=== PATIENT | female | born 2005 | race Caucasian/White ===

== ENCOUNTER 2024-01-15 00:07 | Inpatient (IN) ==
[2024-01-15 01:20] LABS: Appearance Urine Cloudy (Clear); Bacteria Urine Automated 1+ (Negative); Bilirubin Urine Negative (Negative); Blood Urine Negative (Negative); Color Urine Yellow; Epithelial Cell Urine Auto >30 /lpf (0-5); Glucose Urine UA Negative (Negative); Ketones Urine Trace (Negative); Leukocyte Esterase Urine 3+ (Negative); Nitrite Urine Negative (Negative); Protein Urine 1+ (Negative); RBC Urine Automated 0-4 /hpf (0-4); Specific Gravity Urine 1.025 (1.000-1.030); Urobilinogen Urine Negative (Negative); WBC Urine Automated >30 /hpf (0-5)
[2024-01-15 01:21] LABS: Basophils # (auto) 0.03 K/uL (0.00-0.20); Basophils % (auto) 0.5 %; Eosinophils # (auto) 0.14 K/uL (0.00-0.50); Eosinophils % (auto) 2.3 %; Immature Granulocytes # (auto) 0.01 K/uL (0.01-0.20); Immature Granulocytes % (auto) 0.2 %; Lymphocytes # (auto) 2.66 K/uL (1.20-3.40); Lymphocytes % (auto) 44.4 %; Mean Corpuscular Hemoglobin 32.6 pg (25.0-34.0); Mean Corpuscular Volume 95.9 fL (80.0-100.0); Mean Platelet Volume 9.1 fL (9.4-12.4); Monocytes # (auto) 0.39 K/uL (0.11-0.59); Monocytes % (auto) 6.5 %; Neutrophils # (auto) 2.76 K/uL (1.40-6.50); Neutrophils % (auto) 46.1 %; Platelet Count 315 K/uL (130-400); RDW Coefficient of Variation 12.2 % (11.5-14.5); RDW Standard Deviation 42.6 fL (36.4-46.3); White Blood Count 5.99 K/ul (4.8-10.8)
[2024-01-15 01:44] LABS: BUN Creatinine Ratio 16.5 (10-20); Calcium 9.8 mg/dl (8.6-10.3)
[2024-01-15 02:02] LABS: Albumin Globulin Ratio 1.7 (0.9-2); Bilirubin,Total 0.7 mg/dl (0.2-1.0)
--- NOTE | 2024-01-15 02:26 | Emergency Department Note ---
History of Present Illness General Chief complaint: GI Assessment Stated complaint: ALCOHOL INDUCED GASTRITIS Time Seen by Provider: 01/15/24 01:45 History of Present Illness Maximum Pain Intensity: 7 This is a 18-year-old female to male transgender person presenting to the emergency department for evaluation of abdominal pain, nausea, and vomiting. She has a history of alcohol related gastritis and was drinking alcohol this evening. The patient has not been able to keep any food or fluids down after the drinking episode. He does have epigastric pain that does not radiate. No fevers or chills. No chest pain, chest tightness, shortness of breath. They rates her discomfort a 7/10. Home Medications Medication Instructions Recorded Confirmed Type aripiprazole 2 mg tablet 2 mg PO HS 01/15/24 01/15/24 History cholecalciferol (vitamin D3) 25 25 mcg PO DAILY 01/15/24 01/15/24 History mcg (1,000 unit) capsule (Vitamin D3) emtricitabine 200 mg-tenofovir 1 tab PO DAILY 01/15/24 01/15/24 History disoproxil fumarate 300 mg tablet gabapentin 300 mg capsule See Rx Instructions .Route .COMPLEX 01/15/24 01/15/24 History norethindrone 1 mg-ethinyl 1 tab PO DAILY 01/15/24 01/15/24 History estradiol 20 mcg (21)-iron 75 mg (7) tablet paroxetine HCl 10 mg tablet 10 mg PO QAM 01/15/24 01/15/24 History paroxetine HCl 40 mg tablet 40 mg PO QAM 01/15/24 01/15/24 History prazosin 1 mg capsule 1 mg PO HS 01/15/24 01/15/24 History testosterone cypionate 200 mg/mL 0 mg IM DIRECTED 01/15/24 01/15/24 History intramuscular oil Allergies Allergy/AdvReac Type Severity Reaction Status Date / Time No Known Allergies Allergy Verified 01/15/24 02:55 Past Med/Surg History Medical History Alcohol abuse Micmao-os-iubl transgender person Surgical History No significant past surgical history Social History Smoking Status: Current every day smoker Tobacco Type: E-cigarettes / Vaping Preferred Language: Italian Feels Safe at Home: Yes Gender Identity: Transgender Male Review of Systems A total of 10 systems reviewed and were otherwise negative Physical Exam Vital Signs Vital Signs - 24 hr 01/15/24 00:19 01/15/24 01:49 01/15/24 03:52 Temperature 36.7 C Temperature Source Temporal Artery Scan Pulse Rate 74 Pulse Rate [Finger] 63 82 Respiratory Rate 20 20 18 Respiratory Effort / Characteristics Non-Labored Spontaneous Respiratory Depth Normal Respiratory Pattern Regular Blood Pressure 133/83 Blood Pressure [Right Arm] 134/80 116/82 Blood Pressure Mean 99 Blood Pressure Mean [Right Arm] 98 93 Pulse Oximetry 97 98 100 Oxygen Delivery Method Room Air Room Air Room Air Sepsis Recent Fever Within 48 Hours No Sepsis New/Unexplained Change in Mental Status No Sepsis Action Taken by Nursing No Action Required 01/15/24 04:58 Temperature Temperature Source Pulse Rate Pulse Rate [Finger] 86 Respiratory Rate 16 Respiratory Effort / Characteristics Respiratory Depth Respiratory Pattern Blood Pressure Blood Pressure [Right Arm] Blood Pressure Mean Blood Pressure Mean [Right Arm] Pulse Oximetry 98 Oxygen Delivery Method Room Air Sepsis Recent Fever Within 48 Hours Sepsis New/Unexplained Change in Mental Status Sepsis Action Taken by Nursing VITALS: Vitals are noted on the nurse's note and reviewed by myself. Vital signs stable. GENERAL: Well-developed, well-nourished, female to male transgender person, who is in no acute distress and resting comfortably. Patient is cooperative with the examination. HEAD: Normocephalic atraumatic. MOUTH: Mucous membranes moist. Tonsils are not enlarged. Pharynx without erythema, blood, or exudate. Uvula midline. Airway patent. NECK: Supple without nuchal rigidity. No lymphadenopathy. No thyromegaly. Cervical spine is nontender. HEART: Regular rate and rhythm without murmurs gallops or rubs. LUNGS: Clear to auscultation bilaterally without wheezes, rales or rhonchi. No retractions or accessory muscle use. ABDOMEN: Positive normal bowel sounds x 4. Soft, with mild epigastric tenderness. No rebound or guarding. MUSCULOSKELETAL: No muscle atrophy, erythema, or edema noted. Full range of motion in all extremities. Course Administered Medications Discontinued Medications Sodium Chloride (Nss) 1,000 mls @ 999 mls/hr IV .Q1H1M ALESSIO Stop: 01/15/24 04:06 Last Infusion: 01/15/24 04:58 Dose: Infused Documented By: Admin: 01/15/24 02:45 Dose: 999 mls/hr Documented By: Infusion: 01/15/24 02:45 Dose: Infused Documented By: Admin: 01/15/24 02:44 Dose: 999 mls/hr Documented By: LENAK Pantoprazole Sodium 40 mg/ (Syringe) 10 mls @ 5 mls/min IV NOW ONE Stop: 01/15/24 02:07 Last Admin: 01/15/24 02:44 Dose: 5 mls/min Documented By: LENKA Ioversol (Optiray 320 100ml) 100 ml IV ONCE ONE Stop: 01/15/24 02:30 Last Admin: 01/15/24 02:29 Dose: 89 ml Documented By: CHRIS Medical Decision Making Differential Diagnosis Differential diagnosis: Etiologies such as biliary colic, cholecystitis, hepatitis, pancreatitis, cardiac disease, pancreatitis, gastritis, peptic ulcer disease, appendicitis, cystitis, diverticulitis, mesenteric ischemia, inflammatory bowel disease, ileus, bowel obstruction, testicular/adnexal torsion, aortic pathology, shingles, as well as others were considered Laboratory Data 01/15/24 01:04 01/15/24 01:04 Lab Results 01/15/24 01/15/24 Range/Units 01:00 01:04 WBC 5.99 (4.8-10.8) K/ul RBC 4.91 (4.70-6.10) M/uL Hgb 16.0 (14.0-18.0) g/dl Hct 47.1 (42.0-52.0) % MCV 95.9 (80.0-100.0) fL MCH 32.6 (25.0-34.0) pg MCHC 34.0 (32.0-36.0) g/dL RDW Std Deviation 42.6 (36.4-46.3) fL RDW Coeff of Mauri 12.2 (11.5-14.5) % Plt Count 315 (130-400) K/uL MPV 9.1 L (9.4-12.4) fL Immature Gran % (Auto) 0.2 % Neut % (Auto) 46.1 % Lymph % (Auto) 44.4 % [place] % (Auto) 6.5 % Eos % (Auto) 2.3 % Baso % (Auto) 0.5 % Neut # (Auto) 2.76 (1.40-6.50) K/uL Lymph # (Auto) 2.66 (1.20-3.40) K/uL [place] # (Auto) 0.39 (0.11-0.59) K/uL Eos # (Auto) 0.14 (0.00-0.50) K/uL Baso # (Auto) 0.03 (0.00-0.20) K/uL Immature Gran # (Auto) 0.01 (0.01-0.20) K/uL Sodium 140 (136-145) mmol/L Potassium 4.0 (3.5-5.1) mmol/L Chloride 105 (98-107) mmol/L Carbon Dioxide 27 (21-32) mmol/L Anion Gap 8 (3-11) BUN 13 (6-23) mg/dl Creatinine 0.79 (0.6-1.4) mg/dl Est Cr Clr Drug Dosing 112.7 ml/min Est GFR ( Amer) 149.8 ml/min Est GFR (Non-Af Amer) 129.3 ml/min BUN/Creatinine Ratio 16.5 (10-20) Glucose 89 (70-99(Fasting)) mg/dl Calcium 9.8 (8.6-10.3) mg/dl Total Bilirubin 0.7 (0.2-1.0) mg/dl AST 20 (13-39) U/L ALT 12 (7-52) U/L Alkaline Phosphatase 65 (34-104) U/L Total Protein 8.0 (6.0-8.3) gm/dl Albumin 5.0 (3.4-5.0) gm/dl Globulin 3.0 (2.5-4.0) gm/dl Albumin/Globulin Ratio 1.7 (0.9-2) Lipase 712 H (11-82) U/L Urine Color Yellow Urine Appearance Cloudy A (Clear) Urine pH 6.0 (4.5-7.5) Ur Specific [place] 1.025 (1.000-1.030) Urine Protein 1+ H (Negative) Urine Glucose (UA) Negative (Negative) Urine Ketones Trace H (Negative) Urine Blood Negative (Negative) Urine Nitrite Negative (Negative) Urine Bilirubin Negative (Negative) Urine Urobilinogen Negative (Negative) Ur Leukocyte Esterase 3+ H (Negative) Urine WBC (Auto) >30 H (0-5) /hpf Urine RBC (Auto) 0-4 (0-4) /hpf U Hyaline Cast (Auto) 5-10 H (0-5) /lpf U Epithel Cells (Auto) >30 H (0-5) /lpf Urine Bacteria (Auto) 1+ H (Negative) Ethyl Alcohol mg/dL 33.5 H (<10.0) mg/dl Imaging Data Radiologist's Impression: Abdomen/Pelvis CT 01/15/24 02:18 Exam(s): CT ABDOMEN + PELVIS With Contrast IV Amt: 89 ml optiray 320 EXAM: CT Abdomen and Pelvis With Intravenous Contrast CLINICAL HISTORY: Reason for exam: abd pain, pancreatitis on labs. TECHNIQUE: Axial computed tomography images of the abdomen and pelvis with intravenous contrast. CTDI is 10.86 mGy and DLP is 514.47 mGy-cm. Automated exposure control was utilized for the study. A dose lowering technique was utilized adhering to the principles of ALARA. CONTRAST: Patient received 89 ml optiray 320 of IV contrast COMPARISON: No relevant prior studies available. FINDINGS: Lung bases: Unremarkable. No mass. No consolidation. ABDOMEN: Liver: Unremarkable. No mass. Gallbladder and bile ducts: Unremarkable. No calcified stones. No ductal dilation. Pancreas: No CT signs of pancreatitis is clinically queried. Consider multiphasic imaging or MRI if there is further concern. No ductal dilation. Spleen: Unremarkable. No splenomegaly. Adrenals: Unremarkable. No mass. Kidneys and ureters: Unremarkable. No solid mass. No hydronephrosis. Stomach and bowel: No evidence of bowel obstruction. No mucosal thickening. PELVIS: Appendix: Normal appendix. Bladder: Unremarkable. No mass. Reproductive: Unremarkable as visualized. ABDOMEN and PELVIS: Intraperitoneal space: Unremarkable. No free air. No significant fluid collection. Bones/joints: No acute fracture. No dislocation. Soft tissues: Umbilical hernia containing fat. Vasculature: Patent splenic vein. No abdominal aortic aneurysm. Lymph nodes: Unremarkable. No enlarged lymph nodes. IMPRESSION: 1. No CT signs of pancreatitis is clinically queried. Consider multiphasic imaging or MRI if there is further concern. 2. No evidence of peripancreatic fluid collection or acute necrotic collection. 3. Patent splenic vein. 4. No other acute findings. Electronically signed by: Saad Mukherjee MD 01/15/24 05:22 AM MDM Narrative Physical exam and history were performed. Nursing notes, EMR, and Medication List were personally reviewed. No social concerns were identified as barriers to patients care. Patient appears to have nausea, vomiting, and epigastric abdominal pain. IV access was established and labs were obtained. Patient was hydrated and medicated as above. Patient's blood work is as above and was reviewed. Patient does not have a significantly elevated white blood cell count, gross anemia, bandemia, or significant electrolyte imbalance. Lipase is over 700 which likely suggest pancreatitis. Alcohol is 35. Overall the patient does not appear well for discharge. Patient is not able to tolerate p.o. food or fluids. They do have pancreatitis on labs. CT scan of the abdomen and pelvis was ordered. Case was discussed with the on-call hospitalist team who agreed to evaluate the patient here in the ER. Please see their dictation for further patient course, plan, and disposition. The chart was completed utilizing [employer] Speech Voice Recognition Software. Grammatical errors, random word insertions, pronoun errors, and incomplete sentences are an occasional consequence of this system due to software limitations, ambient noise, and hardware issues. Any formal questions or concerns about the content, text, or information contained within the body of this dictation should be directly addressed to the provider for clarification. . Impression & Plan Acute pancreatitis, Alcohol use Discharge Plan Visit Data Chief Complaint: GI Assessment Stated Complaint: ALCOHOL INDUCED GASTRITIS ED Provider: Sandoval [facility] ED Midlevel Provider: Randal Lunsford Discharge Problem: Acute pancreatitis, Alcohol use Forms Stand Alone Forms: My [facility] [place] Prescriptions Prescriptions: No Action paroxetine HCl 10 mg tablet 10 mg PO QAM Rx Instructions: TOTAL DOSE 50 MG--TAKES WITH 40 MG TAB. prazosin 1 mg capsule 1 mg PO HS norethindrone-e.estradiol-iron 1 mg-20 mcg (21)/75 mg (7) tablet 1 tab PO DAILY gabapentin 300 mg capsule See Rx Instructions .ROUTE .COMPLEX Rx Instructions: TAKES 300 MG QAM AND AFTERNOON, THEN 600 MG QHS testosterone cypionate 200 mg/mL oil 0 mg IM DIRECTED Rx Instructions: LAST FILLED 12/18/23 FOR 30 DAYS. paroxetine HCl 40 mg tablet 40 mg PO QAM Rx Instructions: TOTAL DOSE 50 MG--TAKES WITH 10 MG TAB. cholecalciferol (vitamin D3) [Vitamin D3] 25 mcg (1,000 unit) Capsule 25 mcg PO DAILY emtricitabine-tenofovir (TDF) 200-300 mg tablet 1 tab PO DAILY Rx Instructions: LAST FILLED 12/18/23 FOR 30 DAYS aripiprazole 2 mg tablet 2 mg PO HS Referrals Referrals: PCP,NO [Physician] -
[2024-01-15] MEDS: OPTIRAY 320 100ml IV ONE (02:29)
[2024-01-15] MEDS: PANTOprazole 40 MG in SYRINGE 0 ML IV ONE (02:44)
[2024-01-15] MEDS: SODIUM CHLORIDE 0.9% 1,000 ML IV SCH (02:44)
--- NOTE | 2024-01-15 05:23 | CT Scan Report ---
Exam(s): CT ABDOMEN + PELVIS With Contrast IV Amt: 89 ml optiray 320 EXAM: CT Abdomen and Pelvis With Intravenous Contrast CLINICAL HISTORY: Reason for exam: abd pain, pancreatitis on labs. TECHNIQUE: Axial computed tomography images of the abdomen and pelvis with intravenous contrast. CTDI is 10.86 mGy and DLP is 514.47 mGy-cm. Automated exposure control was utilized for the study. A dose lowering technique was utilized adhering to the principles of ALARA. CONTRAST: Patient received 89 ml optiray 320 of IV contrast COMPARISON: No relevant prior studies available. FINDINGS: Lung bases: Unremarkable. No mass. No consolidation. ABDOMEN: Liver: Unremarkable. No mass. Gallbladder and bile ducts: Unremarkable. No calcified stones. No ductal dilation. Pancreas: No CT signs of pancreatitis is clinically queried. Consider multiphasic imaging or MRI if there is further concern. No ductal dilation. Spleen: Unremarkable. No splenomegaly. Adrenals: Unremarkable. No mass. Kidneys and ureters: Unremarkable. No solid mass. No hydronephrosis. Stomach and bowel: No evidence of bowel obstruction. No mucosal thickening. PELVIS: Appendix: Normal appendix. Bladder: Unremarkable. No mass. Reproductive: Unremarkable as visualized. ABDOMEN and PELVIS: Intraperitoneal space: Unremarkable. No free air. No significant fluid collection. Bones/joints: No acute fracture. No dislocation. Soft tissues: Umbilical hernia containing fat. Vasculature: Patent splenic vein. No abdominal aortic aneurysm. Lymph nodes: Unremarkable. No enlarged lymph nodes. IMPRESSION: 1. No CT signs of pancreatitis is clinically queried. Consider multiphasic imaging or MRI if there is further concern. 2. No evidence of peripancreatic fluid collection or acute necrotic collection. 3. Patent splenic vein. 4. No other acute findings. Electronically signed by: Saad Mukherjee MD 01/15/24 05:22 AM
--- NOTE | 2024-01-15 06:24 | History & Physical Report ---
Date of Service January 15, 2024 Assessment & Plan (1) Abdominal pain: Plan: 18-year-old transgender female to male with past med history significant for exercise-induced asthma, general dysphoria, major depression, PTSD,history of gastritis, history of ADHD and autism presents with abdominal pain. Patient states has gastritis. Takes omeprazole . Last night was drinking alcohol and had 4-5 shots of vodka. States generally drinks couple of times a month. Around 11 PM developed severe abdominal pain. Also nausea which prompted to come to the ER. Currently pain is okay. Pain is located in the epigastric region radiating to the lower abdomen. Denies any chest pain or shortness of breath. Feeling hot and cold. No headache. No runny nose or sore throat or cough. No fevers. Normal bowel and bladder movements. Currently resting comfortably and hemodynamically stable. Abdominal pain Possible alcoholic gastritis Possible alcoholic pancreatitis Lipase [address] abdomen pelvis was okay We will keep n.p.o., IV LR@200 mill per hour, IV Dilaudid as needed, IV Pepcid 20 mg twice daily GI consult for further recommendations Depression Anxiety PTSD ADHD Continue aripiprazole,and paroxetine and prazosin Transgender female to male Used to be on antiviral for HIV prevention but no longer taking it DVT prophylaxis Lovenox Disposition Medical floor Full code History of Present Illness Chief Complaint: Abdominal pain Primary Care Provider: Yazmin Matthews MD 18-year-old transgender female to male with past med history significant for exercise-induced asthma, general dysphoria, major depression,PTSD ,history of gastritis, history of ADHD and autism presents with abdominal pain. Patient states has gastritis. Takes omeprazole . Last night was drinking alcohol and had 4-5 shots of vodka. States generally drinks couple of times a month. Aroun d 11 PM developed severe abdominal pain. Also nausea which prompted to come to the ER. Currently pain is okay. Pain is located in the epigastric region radiating to the lower abdomen. Denies any chest pain or shortness of breath. Feeling hot and cold. No headache. No runny nose or sore throat or cough. No fevers. Normal bowel and bladder movements. Currently resting comfortably and hemodynamically stable. Past med history. As mentioned above Past surgical history. Partial removal of hymen Social history. Vapes daily. Smokes marijuana daily. Drinks alcohol couple of times a month. Family history. Mother has thyroid disease. Father has ulcerative colitis. Allergies Allergy/AdvReac Type Severity Reaction Status Date / Time No Known Allergies Allergy Verified 01/15/24 02:55 Home Medications Medication Instructions Recorded Confirmed Type aripiprazole 2 mg tablet 2 mg PO HS 01/15/24 01/15/24 History cholecalciferol (vitamin D3) 25 25 mcg PO DAILY 01/15/24 01/15/24 History mcg (1,000 unit) capsule (Vitamin D3) emtricitabine 200 mg-tenofovir 1 tab PO DAILY 01/15/24 01/15/24 History disoproxil fumarate 300 mg tablet gabapentin 300 mg capsule See Rx Instructions .Route .COMPLEX 01/15/24 01/15/24 History norethindrone 1 mg-ethinyl 1 tab PO DAILY 01/15/24 01/15/24 History estradiol 20 mcg (21)-iron 75 mg (7) tablet paroxetine HCl 10 mg tablet 10 mg PO QAM 01/15/24 01/15/24 History paroxetine HCl 40 mg tablet 40 mg PO QAM 01/15/24 01/15/24 History prazosin 1 mg capsule 1 mg PO HS 01/15/24 01/15/24 History testosterone cypionate 200 mg/mL 0 mg IM DIRECTED 01/15/24 01/15/24 History intramuscular oil Past Med/Surg History Medical History Alcohol abuse Gpogwf-[id number]-sbuh transgender person Surgical History No significant past surgical history Social History Smoking Status: Current every day smoker Tobacco Type: E-cigarettes / Vaping Preferred Language: [place] Feels Safe at Home: Yes Gender Identity: Transgender Male Review of Systems Review of Systems: All systems reviewed & are unremarkable except as noted in HPI & below Physical Exam Physical Exam: General- not in distress Head- atraumatic Eyes- PERRL ENT- oropharynx clear Neck- supple, no JVD. Lungs- clear to auscultation no wheezing or crackles. Heart- regular rhythm; no murmur, no gallop. Abdomen- normal bowel sounds, soft, mild diffuse tenderness. no distension. Extremities- no pretibial edema, no erythema seen. Neuro- alert, oriented x 3; PERRL,no facial palsy; no dysarthria; Results & Data Results & Data Vital Signs (Past 12 Hours) Vital Signs Temp Pulse Pulse Resp BP BP Pulse Ox 01/15/24 04:58 86 16 98 01/15/24 03:52 82 18 116/82 100 01/15/24 01:49 63 20 134/80 98 01/15/24 00:19 36.7 C 74 20 133/83 97 O2 Del Method 01/15/24 04:58 Room Air 01/15/24 03:52 Room Air 01/15/24 01:49 Room Air 01/15/24 00:19 Room Air Diagnostic Findings Laboratory Results WBC 5.99 K/ul (4.8-10.8) 01/15/24 01:04 RBC 4.91 M/uL (4.70-6.10) 01/15/24 01:04 Hgb 16.0 g/dl (14.0-18.0) 01/15/24 01:04 Hct 47.1 % (42.0-52.0) 01/15/24 01:04 MCV 95.9 fL (80.0-100.0) 01/15/24 01:04 MCH 32.6 pg (25.0-34.0) 01/15/24 01:04 MCHC 34.0 g/dL (32.0-36.0) 01/15/24 01:04 RDW Std Deviation 42.6 fL (36.4-46.3) 01/15/24 01:04 RDW Coeff of Mauri 12.2 % (11.5-14.5) 01/15/24 01:04 Plt Count 315 K/uL (130-400) 01/15/24 01:04 MPV 9.1 fL (9.4-12.4) L 01/15/24 01:04 Immature Gran % (Auto) 0.2 % 01/15/24 01:04 Neut % (Auto) 46.1 % 01/15/24 01:04 Lymph % (Auto) 44.4 % 01/15/24 01:04 [place] % (Auto) 6.5 % 01/15/24 01:04 Eos % (Auto) 2.3 % 01/15/24 01:04 Baso % (Auto) 0.5 % 01/15/24 01:04 Neut # (Auto) 2.76 K/uL (1.40-6.50) 01/15/24 01:04 Lymph # (Auto) 2.66 K/uL (1.20-3.40) 01/15/24 01:04 [place] # (Auto) 0.39 K/uL (0.11-0.59) 01/15/24 01:04 Eos # (Auto) 0.14 K/uL (0.00-0.50) 01/15/24 01:04 Baso # (Auto) 0.03 K/uL (0.00-0.20) 01/15/24 01:04 Immature Gran # (Auto) 0.01 K/uL (0.01-0.20) 01/15/24 01:04 Sodium 140 mmol/L (136-145) 01/15/24 01:04 Potassium 4.0 mmol/L (3.5-5.1) 01/15/24 01:04 Chloride 105 mmol/L (98-107) 01/15/24 01:04 Carbon Dioxide 27 mmol/L (21-32) 01/15/24 01:04 Anion Gap 8 (3-11) 01/15/24 01:04 BUN 13 mg/dl (6-23) 01/15/24 01:04 Creatinine 0.79 mg/dl (0.6-1.4) 01/15/24 01:04 Est Cr Clr Drug Dosing 112.7 ml/min 01/15/24 01:04 Est GFR ( Amer) 149.8 ml/min 01/15/24 01:04 Est GFR (Non-Af Amer) 129.3 ml/min 01/15/24 01:04 BUN/Creatinine Ratio 16.5 (10-20) 01/15/24 01:04 Glucose 89 mg/dl (70-99(Fasting)) 01/15/24 01:04 Calcium 9.8 mg/dl (8.6-10.3) 01/15/24 01:04 Total Bilirubin 0.7 mg/dl (0.2-1.0) 01/15/24 01:04 AST 20 U/L (13-39) 01/15/24 01:04 ALT 12 U/L (7-52) 01/15/24 01:04 Alkaline Phosphatase 65 U/L (34-104) 01/15/24 01:04 Total Protein 8.0 gm/dl (6.0-8.3) 01/15/24 01:04 Albumin 5.0 gm/dl (3.4-5.0) 01/15/24 01:04 Globulin 3.0 gm/dl (2.5-4.0) 01/15/24 01:04 Albumin/Globulin Ratio 1.7 (0.9-2) 01/15/24 01:04 Lipase 712 U/L (11-82) H 01/15/24 01:04 Urine Color Yellow 01/15/24 01:00 Urine Appearance Cloudy (Clear) A 01/15/24 01:00 Urine pH 6.0 (4.5-7.5) 01/15/24 01:00 Ur Specific [place] 1.025 (1.000-1.030) 01/15/24 01:00 Urine Protein 1+ (Negative) H 01/15/24 01:00 Urine Glucose (UA) Negative (Negative) 01/15/24 01:00 Urine Ketones Trace (Negative) H 01/15/24 01:00 Urine Blood Negative (Negative) 01/15/24 01:00 Urine Nitrite Negative (Negative) 01/15/24 01:00 Urine Bilirubin Negative (Negative) 01/15/24 01:00 Urine Urobilinogen Negative (Negative) 01/15/24 01:00 Ur Leukocyte Esterase 3+ (Negative) H 01/15/24 01:00 Urine WBC (Auto) >30 /hpf (0-5) H 01/15/24 01:00 Urine RBC (Auto) 0-4 /hpf (0-4) 01/15/24 01:00 U Hyaline Cast (Auto) 5-10 /lpf (0-5) H 01/15/24 01:00 U Epithel Cells (Auto) >30 /lpf (0-5) H 01/15/24 01:00 Urine Bacteria (Auto) 1+ (Negative) H 01/15/24 01:00 Ethyl Alcohol mg/dL 33.5 mg/dl (<10.0) H 01/15/24 01:04 Impressions Abdomen/Pelvis CT 01/15/24 02:18 Exam(s): CT ABDOMEN + PELVIS With Contrast IV Amt: 89 ml optiray 320 EXAM: CT Abdomen and Pelvis With Intravenous Contrast CLINICAL HISTORY: Reason for exam: abd pain, pancreatitis on labs. TECHNIQUE: Axial computed tomography images of the abdomen and pelvis with intravenous contrast. CTDI is 10.86 mGy and DLP is 514.47 mGy-cm. Automated exposure control was utilized for the study. A dose lowering technique was utilized adhering to the principles of ALARA. CONTRAST: Patient received 89 ml optiray 320 of IV contrast COMPARISON: No relevant prior studies available. FINDINGS: Lung bases: Unremarkable. No mass. No consolidation. ABDOMEN: Liver: Unremarkable. No mass. Gallbladder and bile ducts: Unremarkable. No calcified stones. No ductal dilation. Pancreas: No CT signs of pancreatitis is clinically queried. Consider multiphasic imaging or MRI if there is further concern. No ductal dilation. Spleen: Unremarkable. No splenomegaly. Adrenals: Unremarkable. No mass. Kidneys and ureters: Unremarkable. No solid mass. No hydronephrosis. Stomach and bowel: No evidence of bowel obstruction. No mucosal thickening. PELVIS: Appendix: Normal appendix. Bladder: Unremarkable. No mass. Reproductive: Unremarkable as visualized. ABDOMEN and PELVIS: Intraperitoneal space: Unremarkable. No free air. No significant fluid collection. Bones/joints: No acute fracture. No dislocation. Soft tissues: Umbilical hernia containing fat. Vasculature: Patent splenic vein. No abdominal aortic aneurysm. Lymph nodes: Unremarkable. No enlarged lymph nodes. IMPRESSION: 1. No CT signs of pancreatitis is clinically queried. Consider multiphasic imaging or MRI if there is further concern. 2. No evidence of peripancreatic fluid collection or acute necrotic collection. 3. Patent splenic vein. 4. No other acute findings. Electronically signed by: Saad Mukherjee MD 01/15/24 05:22 AM Code Status & VTE Plan VTE Prophylaxis Plan VTE Prophylaxis will be ordered: Yes
[2024-01-15] MEDS ORDERED: ONDANSETRON INJ 2 MG/ML 2 ML VIAL IV PRN (08:20)
[2024-01-15] MEDS ORDERED: HYDROmorphone INJ 0.5 MG/0.5 ML SYR IV PRN (08:20)
[2024-01-15] MEDS: LACTATED RINGER'S 1,000 ML IV SCH (09:18)
[2024-01-15] MEDS: ENOXAPARIN INJ 40 MG/0.4 ML SYR SQ SCH (09:20)
[2024-01-15] MEDS: GABAPENTIN 300 MG CAP PO SCH (09:22)
[2024-01-15] MEDS: PARoxetine HCL 20 MG TAB PO SCH (09:22)
[2024-01-15] MEDS: FAMOTIDINE 20MG IV PUSH 20 MG/5 ML SYR IV SCH (09:23)
[2024-01-15] MEDS: CHOLECALCIFEROL 25 MCG (1000 UNITS) TAB PO SCH (09:23)
[2024-01-15] MEDS: PARoxetine HCL 10 MG TAB PO SCH (09:38)
--- NOTE | 2024-01-15 10:54 | Gastrointestinal Consultation ---
Date of Consultation January 15, 2024 Assessment & Plan (1) Abdominal pain: (2) Alcohol use: Plan Patient with sudden onset abdominal pain, nausea, and vomiting that was sudden in onset last evening. Lipase was [address] scan shown no pacnreatitis or acute findings. suspect that symptoms are more related to a gastritis. Case was discussed with Dr. Redd. - start protonix 40mg IV BID. - avoid nsaids. - would also avoid ETOH as it is a gastric irritant. Supervising Physician Co-Signing Physician Notes Agree with ALEXIS Villanueva as above Abd: Soft, NT, ND, +BS Continue Pantoprazole 40 mg BID Continue current therapy and supportive care Advance diet as tolerated History of Present Illness Reason for Consultation: gastritis, pancreatitis Requesting Physician: Domenico Serrato MD Attending Physician: Vivi Galan MD History of Present Illness Patient is a 18 year old transgender female to male with past med history significant for exercise-induced asthma, general dysphoria, major depression, PTSD,history of gastritis, history of ADHD and autism presented to the ED with sudden onset abdominal pain, nausea, vomiting. Patient tells me that his symptoms started after having drank 4-5 alcoholic mixed drinks and having eaten pizza. On evaluation in ED lipase was [address] scan shown no pancreatitis or acute findings. Patient tells me that he only drinks etoh once or twice a month and not consistently. Pain was rated 7/10 and burning in the epigastric region. Patient also admits to recently having more issues with acid reflux. He does not take anything for reflux. He does have a past history of nsaid use but has not used in over a month. He has never seen GI and has never had any endoscopic procedures. Allergies Allergy/AdvReac Type Severity Reaction Status Date / Time No Known Allergies Allergy Verified 01/15/24 02:55 Home Medications Medication Instructions Recorded Confirmed Type aripiprazole 2 mg tablet 2 mg PO HS 01/15/24 01/15/24 History cholecalciferol (vitamin D3) 25 25 mcg PO DAILY 01/15/24 01/15/24 History mcg (1,000 unit) capsule (Vitamin D3) emtricitabine 200 mg-tenofovir 1 tab PO DAILY 01/15/24 01/15/24 History disoproxil fumarate 300 mg tablet gabapentin 300 mg capsule See Rx Instructions .Route .COMPLEX 01/15/24 01/15/24 History norethindrone 1 mg-ethinyl 1 tab PO DAILY 01/15/24 01/15/24 History estradiol 20 mcg (21)-iron 75 mg (7) tablet paroxetine HCl 10 mg tablet 10 mg PO QAM 01/15/24 01/15/24 History paroxetine HCl 40 mg tablet 40 mg PO QAM 01/15/24 01/15/24 History prazosin 1 mg capsule 1 mg PO HS 01/15/24 01/15/24 History testosterone cypionate 200 mg/mL 0 mg IM DIRECTED 01/15/24 01/15/24 History intramuscular oil Patient History Medical History Alcohol abuse [id number] transgender person Surgical History No significant past surgical history Social History Smoking Status: Never smoker Tobacco Type: E-cigarettes / Vaping Hx Alcohol Use: Yes Alcohol type: hard liquor Hx Substance Use: Yes Last Used Substance: Hours (ago) Preferred Language: Frisian Communication Ability: Effective Service Engine Repairer Required: No Beliefs That Will Affect Care: None Current Living Situation: Significant Other Current Living Situation Comment: Will soon be homeless per patient Feels Safe at Home: Yes Gender Identity: Transgender Male Assistive Devices: Cane and Walker Review of Systems Review of Systems: All systems reviewed & are unremarkable except as noted in HPI & below Physical Exam Constitutional: WD/WN, vitals as above Respiratory: normal respiratory effort, lungs clear to auscultation Cardiovascular: RRR, no murmur, no edema Gastrointestinal (Abdomen): mid epigastric tenderness to palpation, no guarding, soft. normal bowel sounds. Skin: no rashes, warm and dry Psychiatric: Orientation: alert and oriented x 3 Affect: euthymic affect Results & Data Vital Signs (Past 12 Hours) Vital Signs Temp Pulse Pulse Resp BP BP Pulse Ox 01/15/24 08:20 97.9 F 71 16 123/82 99 01/15/24 07:51 72 18 121/66 98 01/15/24 06:36 74 16 98 01/15/24 04:58 86 16 98 01/15/24 03:52 82 18 116/82 100 01/15/24 01:49 63 20 134/80 98 01/15/24 00:19 98.1 F 74 20 133/83 97 O2 Del Method 01/15/24 08:20 Room Air 01/15/24 07:51 Room Air 01/15/24 06:36 Room Air 01/15/24 04:58 Room Air 01/15/24 03:52 Room Air 01/15/24 01:49 Room Air 01/15/24 00:19 Room Air Coding Level of Care Code 21942 IN/OBS CONSULT LVL 4,60M Diagnoses Abdominal pain R10.9 Alcohol use Z78.9
[2024-01-15] MEDS: PANTOprazole 40 MG in SYRINGE 0 ML IV SCH (11:30)
--- NOTE | 2024-01-15 13:23 | Communication Note ---
Date of Service: January 15, 2024 Patient evaluated at bedside. Pronouns of "HE" utilized per preference. Patient states he is better so far and "very hungry" Reports some linger nausea, but no further vomiting or other acute issues. Advance to CLD If doing well, will discuss d/c IVF as able. Repeat lipase in am Discuss further diet advancement with GI
[2024-01-15] MEDS: PRAZOSIN HCL 1 MG CAP PO SCH (20:15)
[2024-01-15] MEDS: ARIPIprazole 1 MG/ML ORAL SOLN 150 ML BTL PO SCH (20:16)
[2024-01-15] MEDS: GABAPENTIN 600 MG TAB PO SCH (20:16)
[2024-01-16 06:21] LABS: Hemoglobin 15.4 g/dl (12.0-16.0); Mean Corpuscular Hemoglobin 33.5 pg (25.0-34.0); Mean Corpuscular Hgb Conc 35.8 g/dL (32.0-36.0); Mean Corpuscular Volume 93.5 fL (80.0-100.0); Platelet Count 299 K/uL (130-400); RDW Coefficient of Variation 11.9 % (11.5-14.5); RDW Standard Deviation 41.2 fL (36.4-46.3); White Blood Count 5.84 K/ul (4.8-10.8)
[2024-01-16 06:22] LABS: Basophils # (auto) 0.03 K/uL (0.00-0.20); Basophils % (auto) 0.5 %; Eosinophils # (auto) 0.14 K/uL (0.00-0.50); Eosinophils % (auto) 2.4 %; Immature Granulocytes # (auto) 0.01 K/uL (0.01-0.20); Immature Granulocytes % (auto) 0.2 %; Lymphocytes # (auto) 2.38 K/uL (1.20-3.40); Lymphocytes % (auto) 40.8 %; Mean Platelet Volume 9.1 fL (9.4-12.4); Monocytes # (auto) 0.49 K/uL (0.11-0.59); Monocytes % (auto) 8.4 %; Neutrophils # (auto) 2.79 K/uL (1.40-6.50); Neutrophils % (auto) 47.7 %
[2024-01-16 06:34] LABS: BUN Creatinine Ratio 8.1 (10-20); Calcium 9.2 mg/dl (8.6-10.3); Creatinine Clr Calc Pharmacy 97.7 ml/min; Est GFR (African American) 112.7 ml/min; Est GFR (Non-African American) 97.3 ml/min; Magnesium 1.9 mg/dl (1.7-2.4); Potassium 4.1 mmol/L (3.5-5.1)
--- NOTE | 2024-01-16 14:23 | Discharge Summary ---
Discharge Summary Date of Service January 16, 2024 Notes For Next Care Provider Please ensure follow up with Gastroenterology Medication Changes From Visit Pantoprazole 40mg BID Admission HPI Per Admitting Provider 18-year-old transgender female to male with past med history significant for exercise-induced asthma, general dysphoria, major depression,PTSD ,history of gastritis, history of ADHD and autism presents with abdominal pain. Patient states has gastritis. Takes omeprazole . Last night was drinking alcohol and had 4-5 shots of vodka. States generally drinks couple of times a month. Around 11 PM developed severe abdominal pain. Also nausea which prompted to come to the ER. Currently pain is okay. Pain is located in the epigastric region radiating to the lower abdomen. Denies any chest pain or shortness of breath. Feeling hot and cold. No headache. No runny nose or sore throat or cough. No fevers. Normal bowel and bladder movements. Currently resting comfortably and hemodynamically stable. Past med history. As mentioned above Past surgical history. Partial removal of hymen Social history. Vapes daily. Smokes marijuana daily. Drinks alcohol couple of times a month. Family history. Mother has thyroid disease. Father has ulcerative colitis. Admission Exam Per Admitting Provider General- not in distress Head- atraumatic Eyes- PERRL ENT- oropharynx clear Neck- supple, no JVD. Lungs- clear to auscultation no wheezing or crackles. Heart- regular rhythm; no murmur, no gallop. Abdomen- normal bowel sounds, soft, mild diffuse tenderness. no distension. Extremities- no pretibial edema, no erythema seen. Neuro- alert, oriented x 3; PERRL,no facial palsy; no dysarthria; Principal Dx & Hospital Course #1 = Principal Diagnosis (1) Abdominal pain: Plan 18-year-old transgender female to male with past med history significant for exercise-induced asthma, general dysphoria, major depression, PTSD,history of gastritis, history of ADHD and autism who presented with intractable abdominal pain, nausea and vomiting. Abdominal pain Possible alcoholic gastritis Possible alcoholic pancreatitis Lipase 712 on admission, downtrended to normal the next day CT abd pelvis with no signs of pancreatitis on imaging Presented with N/V and abdominal pain that subsequently improved, pt was tolerating soft food on discharge. N/V resolved on discharge GI consulted- recommended pantoprazole 40mg BID, advised symptoms likely due to gastritis Continue pantoprazole 40mg BID after discharge Encourage alcohol cessation PCP and GI followup after discharge Depression Anxiety PTSD ADHD Continue aripiprazole, paroxetine and prazosin Transgender female to male On hormone therapy Discharge Exam General: Alert, oriented. No acute distress Skin: No noted rashes or bruises Psych: Appropriate mood and affect Neuro: No gross deficits HEENT: NC/AT Chest: Nontender to palpation. CV: RRR, Normal s1, s2. No murmurs appreciated Resp: Breath sounds clear bilaterally, no increased effort of breathing. No crac kles/rhonchi/rales. Abdomen: Soft, mildly tender diffusely, nondistended. No guarding. No organomegaly appreciated. Extremities: No edema in lower extremities bilaterally. Updated Medication List Medication Instructions Recorded Confirmed Type aripiprazole 2 mg tablet 2 mg PO HS 01/15/24 01/15/24 History cholecalciferol (vitamin D3) 25 25 mcg PO DAILY 01/15/24 01/15/24 History mcg (1,000 unit) capsule (Vitamin D3) emtricitabine 200 mg-tenofovir 1 tab PO DAILY 01/15/24 01/15/24 History disoproxil fumarate 300 mg tablet gabapentin 300 mg capsule See Rx Instructions .Route .COMPLEX 01/15/24 01/15/24 History norethindrone 1 mg-ethinyl 1 tab PO DAILY 01/15/24 01/15/24 History estradiol 20 mcg (21)-iron 75 mg (7) tablet paroxetine HCl 10 mg tablet 10 mg PO QAM 01/15/24 01/15/24 History paroxetine HCl 40 mg tablet 40 mg PO QAM 01/15/24 01/15/24 History prazosin 1 mg capsule 1 mg PO HS 01/15/24 01/15/24 History testosterone cypionate 200 mg/mL 0 mg IM DIRECTED 01/15/24 01/15/24 History intramuscular oil pantoprazole 40 mg tablet,delayed 40 mg PO BID #60 tabs 01/16/24 Rx release Hospital Stay Data Consultations 01/15/24 02:42 ED Decision to Admit Stat 01/15/24 08:20 Consult Gastroenterology Routine Diagnostic Imagining Performed 01/15/24 02:18 CT abd pelvis IV con only Stat Abdomen/Pelvis CT 01/15/24 02:18 Exam(s): CT ABDOMEN + PELVIS With Contrast IV Amt: 89 ml optiray 320 EXAM: CT Abdomen and Pelvis With Intravenous Contrast CLINICAL HISTORY: Reason for exam: abd pain, pancreatitis on labs. TECHNIQUE: Axial computed tomography images of the abdomen and pelvis with intravenous contrast. CTDI is 10.86 mGy and DLP is 514.47 mGy-cm. Automated exposure control was utilized for the study. A dose lowering technique was utilized adhering to the principles of ALARA. CONTRAST: Patient received 89 ml optiray 320 of IV contrast COMPARISON: No relevant prior studies available. FINDINGS: Lung bases: Unremarkable. No mass. No consolidation. ABDOMEN: Liver: Unremarkable. No mass. Gallbladder and bile ducts: Unremarkable. No calcified stones. No ductal dilation. Pancreas: No CT signs of pancreatitis is clinically queried. Consider multiphasic imaging or MRI if there is further concern. No ductal dilation. Spleen: Unremarkable. No splenomegaly. Adrenals: Unremarkable. No mass. Kidneys and ureters: Unremarkable. No solid mass. No hydronephrosis. Stomach and bowel: No evidence of bowel obstruction. No mucosal thickening. PELVIS: Appendix: Normal appendix. Bladder: Unremarkable. No mass. Reproductive: Unremarkable as visualized. ABDOMEN and PELVIS: Intraperitoneal space: Unremarkable. No free air. No significant fluid collection. Bones/joints: No acute fracture. No dislocation. Soft tissues: Umbilical hernia containing fat. Vasculature: Patent splenic vein. No abdominal aortic aneurysm. Lymph nodes: Unremarkable. No enlarged lymph nodes. IMPRESSION: 1. No CT signs of pancreatitis is clinically queried. Consider multiphasic imaging or MRI if there is further concern. 2. No evidence of peripancreatic fluid collection or acute necrotic collection. 3. Patent splenic vein. 4. No other acute findings. Electronically signed by: Saad Mukherjee MD 01/15/24 05:22 AM Discharge Instructions Given to Patient (Per Discharging Provider) Shirlene, You were admitted with concerning abdominal pain and N/V. You were seen by the box toe cementer who recommended use of pantoprazole 40mg twice a day and advancing your diet as tolerated. You expressed that you wanted to go home. You ate soft solid food before discharge and tolerated that well. Your nausea and vomitting had resolved. Please continue with use of pantoprazole 40mg twice a day and advancing your d iet at home. Please keep close follow up with your primary care provider and a box toe cementer after discharge. Your primary care provider can refer you to one as needed. Please do not hesitate to come back to the emergency room if your symptoms worsen or return. It was a pleasure taking care of you while you were here. Total Time Total Time Spent Total Time Spent (In Minutes): > 30 minutes
[2024-01-16] MEDS: INFLUENZA VIRUS QUADRIVALENT VACCINE (IIV4) 0.5 ML SYR IM ONE (14:36)
[2024-01-17 09:40] LABS: Red Blood Count 4.91 M/uL (4.20-5.40)
[2024-01-17 09:41] LABS: Est GFR (African American) 124.9 ml/min; Est GFR (Non-African American) 107.8 ml/min; Hematocrit (blood only) 47.1 % (37.0-47.0)
[2024-01-17 09:42] LABS: Creatinine Clr Calc Pharmacy 106.3 ml/min
== END 2024-01-16 15:49 | disposition home or self-care (01) | DRG 391 ==
LOC: EDSEX 00:07 → ED 00:07 → SUATTDRO 06:04 → 3N 06:04

== ENCOUNTER 2025-01-29 13:37 | Inpatient (IN) ==
[2025-01-29 14:36] LABS: Basophils # (auto) 0.04 K/uL (0.00-0.20); Basophils % (auto) 0.6 %; Eosinophils # (auto) 0.07 K/uL (0.00-0.50); Eosinophils % (auto) 1.1 %; Hematocrit (blood only) 45.8 % (37.0-47.0); Hemoglobin 15.7 g/dl (12.0-16.0); Immature Granulocytes # (auto) 0.01 K/uL (0.01-0.20); Immature Granulocytes % (auto) 0.2 %; Lymphocytes # (auto) 1.42 K/uL (1.20-3.40); Lymphocytes % (auto) 21.7 %; Mean Corpuscular Hgb Conc 34.3 g/dL (32.0-36.0); Mean Corpuscular Volume 90.3 fL (80.0-100.0); Mean Platelet Volume 9.6 fL (9.4-12.4); Monocytes # (auto) 0.54 K/uL (0.11-0.59); Monocytes % (auto) 8.3 %; Neutrophils # (auto) 4.46 K/uL (1.40-6.50); Neutrophils % (auto) 68.1 %; Platelet Count 310 K/uL (130-400); RDW Coefficient of Variation 12.6 % (11.5-14.5); RDW Standard Deviation 41.4 fL (36.4-46.3); Red Blood Count 5.07 M/uL (4.20-5.40); White Blood Count 6.54 K/ul (4.8-10.8)
[2025-01-29 14:45] LABS: Appearance Urine Clear (Clear); Bacteria Urine Automated None Seen (None Seen); Bilirubin Urine Negative (Negative); Blood Urine Negative (Negative); Cast Urine Automated 0-2 /lpf (0-2); Color Urine Yellow; Epithelial Cell Urine Auto 0-2 /hpf (0-2); Glucose Urine UA Negative (Negative); Ketones Urine Negative (Negative); Leukocyte Esterase Urine 1+ (Negative); Nitrite Urine Negative (Negative); Protein Urine Negative (Negative); RBC Urine Automated 0-2 /hpf (0-2); Specific Gravity Urine 1.025 (1.000-1.030); Urobilinogen Urine Negative (Negative); WBC Urine Automated 0-5 /hpf (0-5); pH Urine 8.5 (4.5-7.5)
[2025-01-29 15:00] LABS: Albumin Level 5.4 gm/dl (3.4-5.0); Bilirubin,Total 1.7 mg/dl (0.2-1.0); Calcium 10.3 mg/dl (8.6-10.3); Potassium 4.2 mmol/L (3.5-5.1)
[2025-01-29 15:06] LABS: Albumin Globulin Ratio 2.1 (0.9-2); BUN Creatinine Ratio 15.4 (10-20); Creatinine Clr Calc Pharmacy 101.6 ml/min; Globulin 2.6 gm/dl (2.5-4.0)
--- NOTE | 2025-01-29 15:31 | Emergency Department Note ---
Impression & Plan Pancreatitis ED Provider Note Diagnosis: Pancreatitis, duodenitis Disposition: Admission CHIEF COMPLAINT: Abdominal pain, vomiting HPI: Patient is a 19-year-old presenting with complaint of midepigastric abdominal pain. Patient reportedly has been having symptoms for 2 to 3 days time. Patient states multiple episodes of vomiting. Patient was seen in the emergency room given Zofran with improvement and had right upper quadrant ultrasound which was negative. Patient states since going home the Zofran will work briefly but the vomiting will restart after 1 to 2 hours time. Patient has had continued midepigastric abdominal pain. Patient denies any fevers or chills. Patient denies any prior abdominal surgeries. Patient states 1 prior episode of pancreatitis 1 year ago after taking 4 shots of liquor. Patient denies any recent alcohol use in the past 2 weeks time. PAST MEDICAL HISTORY: See Below PAST SURGICAL HISTORY: See Below SOCIAL HISTORY: See Below HOME MEDICATIONS: See Below ALLERGIES: See Below VITALS: See Below PHYSICAL EXAMINATION: GENERAL: Well appearing, well nourished, NAD, non-toxic. EYE EXAM: Normal conjunctiva. OROPHARYNX: Moist mucus membranes. Grossly normal dentition. NECK: Supple, LUNGS: Clear to auscultation. Normal chest wall mechanics. HEART: NSR ABDOMEN: Abdomen soft, tenderness mid epigastric BACK: No CVA TTP. SKIN: No rashes and no bruising. UPPER EXTREMITIES: Upper extremities are grossly normal LOWER EXTREMITIES: Grossly normal, no edema. NEURO EXAM: A&O x3,, normal speech, moves all 4 extremities PSYCH: Cooperative MEDICAL DECISION MAKING: Reviewed external documents: ER visit 2 days prior History obtained from: Patient ER Course: Patient is a 19-year-old presenting with complaint of abdominal pain nausea vomiting decreased appetite. Patient not having any fevers. Patient seen in the emergency room 2 days prior had ultrasound of the right upper quadrant performed which was negative and has been having continued episodes of vomiting and unable to tolerate p.o. liquids. Patient today found to have an elevated lipase. Patient having acute pancreatitis. Patient states a prior episode of pancreatitis 1 year prior due to alcohol use but denies any alcohol in the past 1 weeks time. Patient today had CT scan performed of abdomen and pelvis which does not show any gallbladder pathology. Patient's pancreas without pseudocyst. Patient does have duodenitis. Patient given IV fluids and nausea medication. Patient admitted for monitoring with hospitalist service. Labs (independently interpreted) are significant for: Elevated lipase Medications given: Normal saline Consultants: Hospitalist Triage Nursing notes reviewed and agree them. Vital Signs: reviewed and remarkable for: no significant abnormalities Past Med/Surg History Problem List Pancreatitis (Acute) Left sided abdominal pain (Acute) Nausea and vomiting (Acute) Abdominal pain Alcohol use (Acute) Medical History Acute pancreatitis Alcohol abuse [id number]-[id number] transgender person Surgical History (Updated 01/27/25 @ 15:43 by Branden De Anda) No significant past surgical history Social History Smoking Status: Current every day smoker Tobacco Type: E-cigarettes / Vaping Hx Alcohol Use: Yes Alcohol type: hard liquor Hx Substance Use: Yes Last Used Substance: Hours (ago) Preferred Language: Romanian Communication Ability: Effective Electroencephalographic Technician Required: No Beliefs That Will Affect Care: None Current Living Situation: Significant Other Current Living Situation Comment: Will soon be homeless per patient Feels Safe at Home: Yes Gender Identity: Transgender Male Assistive Devices: Cane and Walker Allergies Allergies Allergy/AdvReac Type Severity Reaction Status Date / Time No Known Allergies Allergy Verified 01/15/24 02:55 Home Meds Home Medications Medication Instructions Recorded Confirmed aripiprazole 2 mg tablet 2 mg PO HS 01/15/24 01/15/24 cholecalciferol (vitamin D3) 25 25 mcg PO DAILY 01/15/24 01/15/24 mcg (1,000 unit) capsule (Vitamin D3) emtricitabine 200 mg-tenofovir 1 tab PO DAILY 01/15/24 01/15/24 disoproxil fumarate 300 mg tablet gabapentin 300 mg capsule See Rx Instructions .Route .COMPLEX 01/15/24 01/15/24 norethindrone 1 mg-ethinyl 1 tab PO DAILY 01/15/24 01/15/24 estradiol 20 mcg (21)-iron 75 mg (7) tablet paroxetine HCl 10 mg tablet 10 mg PO QAM 01/15/24 01/15/24 paroxetine HCl 40 mg tablet 40 mg PO QAM 01/15/24 01/15/24 prazosin 1 mg capsule 1 mg PO HS 01/15/24 01/15/24 testosterone cypionate 200 mg/mL 0 mg IM DIRECTED 01/15/24 01/15/24 intramuscular oil Previous Rx's Medication Instructions Recorded pantoprazole 40 mg tablet,delayed 40 mg PO BID #60 tabs 01/16/24 release methylprednisolone 4 mg tablets in 4 mg PO DIRECTED #21 ea 11/30/24 a dose pack (Medrol (Demetri)) ondansetron 4 mg disintegrating 4 mg PO Q6H PRN nausea and 01/27/25 tablet vomiting #20 tabs Results & Data (ED) Vital Signs Vital Signs - 24 hr 01/29/25 13:44 01/29/25 14:36 01/29/25 14:37 Temperature 36.7 C Temperature Source Oral Pulse Rate 56 L 53 L Pulse Rate [Apical] 51 L Pulse Rhythm [Apical] Pulse Strength [Apical] Respiratory Rate 19 16 Respiratory Effort / Characteristics Non-Labored Spontaneous Non-Labored Spontaneous Respiratory Depth Normal Respiratory Pattern Blood Pressure 117/73 Blood Pressure [Right Arm] 116/66 Blood Pressure Mean 87 Blood Pressure Mean [Right Arm] 82 Blood Pressure Position Sitting Pulse Oximetry 99 97 Oxygen Delivery Method Room Air Room Air Sepsis Recent Fever Within 48 Hours No Sepsis New/Unexplained Change in Mental Status No Sepsis Action Taken by Nursing No Action Required 01/29/25 16:00 Temperature Temperature Source Pulse Rate Pulse Rate [Apical] 65 Pulse Rhythm [Apical] Regular Pulse Strength [Apical] Normal Respiratory Rate 17 Respiratory Effort / Characteristics Non-Labored Spontaneous Respiratory Depth Normal Respiratory Pattern Regular Blood Pressure Blood Pressure [Right Arm] Blood Pressure Mean Blood Pressure Mean [Right Arm] Blood Pressure Position Pulse Oximetry 97 Oxygen Delivery Method Room Air Sepsis Recent Fever Within 48 Hours Sepsis New/Unexplained Change in Mental Status Sepsis Action Taken by Nursing Laboratory Data 01/29/25 14:18 01/29/25 14:18 Lab Results 01/29/25 Range/Units 14:18 WBC 6.54 (4.8-10.8) K/ul RBC 5.07 (4.20-5.40) M/uL Hgb 15.7 (12.0-16.0) g/dl Hct 45.8 (37.0-47.0) % MCV 90.3 (80.0-100.0) fL MCH 31.0 (25.0-34.0) pg MCHC 34.3 (32.0-36.0) g/dL RDW Std Deviation 41.4 (36.4-46.3) fL RDW Coeff of Mauri 12.6 (11.5-14.5) % Plt Count 310 (130-400) K/uL MPV 9.6 (9.4-12.4) fL Immature Gran % (Auto) 0.2 % Neut % (Auto) 68.1 % Lymph % (Auto) 21.7 % [place] % (Auto) 8.3 % Eos % (Auto) 1.1 % Baso % (Auto) 0.6 % Neut # (Auto) 4.46 (1.40-6.50) K/uL Lymph # (Auto) 1.42 (1.20-3.40) K/uL [place] # (Auto) 0.54 (0.11-0.59) K/uL Eos # (Auto) 0.07 (0.00-0.50) K/uL Baso # (Auto) 0.04 (0.00-0.20) K/uL Immature Gran # (Auto) 0.01 (0.01-0.20) K/uL Sodium 140 (136-145) mmol/L Potassium 4.2 (3.5-5.1) mmol/L Chloride 106 (98-107) mmol/L Carbon Dioxide 30 (21-32) mmol/L Anion Gap 4 (3-11) BUN 14 (6-23) mg/dl Creatinine 0.91 (0.6-1.2) mg/dl Est Cr Clr Drug Dosing 101.6 ml/min eGFR 92.05 BUN/Creatinine Ratio 15.4 (10-20) Glucose 94 (70-99(Fasting)) mg/dl Calcium 10.3 (8.6-10.3) mg/dl Total Bilirubin 1.7 H (0.2-1.0) mg/dl AST 31 (13-39) U/L ALT 54 H (7-52) U/L Alkaline Phosphatase 84 (34-104) U/L Total Protein 8.0 (6.0-8.3) gm/dl Albumin 5.4 H (3.4-5.0) gm/dl Globulin 2.6 (2.5-4.0) gm/dl Albumin/Globulin Ratio 2.1 H (0.9-2) Lipase 293 H (11-82) U/L Urine Color Yellow Urine Appearance Clear (Clear) Urine pH 8.5 H (4.5-7.5) Ur Specific [place] 1.025 (1.000-1.030) Urine Protein Negative (Negative) Urine Glucose (UA) Negative (Negative) Urine Ketones Negative (Negative) Urine Blood Negative (Negative) Urine Nitrite Negative (Negative) Urine Bilirubin Negative (Negative) Urine Urobilinogen Negative (Negative) Ur Leukocyte Esterase 1+ H (Negative) Urine WBC (Auto) 0-5 (0-5) /hpf Urine RBC (Auto) 0-2 (0-2) /hpf U Hyaline Cast (Auto) 0-2 (0-2) /lpf U Epithel Cells (Auto) 0-2 (0-2) /hpf Urine Bacteria (Auto) None Seen (None Seen) Administered Medications Discontinued Medications Sodium Chloride (Nss) 1,000 mls @ 999 mls/hr IV .Q1H1M ONE Stop: 01/29/25 16:29 Last Infusion: 01/29/25 16:35 Dose: Infused Documented By: Admin: 01/29/25 15:34 Dose: 999 mls/hr Documented By: ELIZABETH Ioversol (Optiray 320 100ml) 93 ml IV ONCE ONE Stop: 01/29/25 15:44 Last Admin: 01/29/25 15:43 Dose: 93 ml Documented By: FORREST Morphine Sulfate (Morphine Sulfate 4 Mg/Ml 1 Ml Carp\Vial) 4 mg IV NOW STA Stop: 01/29/25 15:30 Last Admin: 01/29/25 15:34 Dose: 4 mg Documented By: ELIZABETH Imaging Data Radiologist's Impression: Abdomen/Pelvis CT 01/29/25 15:[address] WITH IV CONTRAST CT DOSE: 824.11 mGy.cm HISTORY: Acute mid abdominal pain with elevated lipase midepigastric pain, elevated lipase TECHNIQUE: Multiaxial CT images of the abdomen and pelvis were performed following the IV administration of 93 cc of Optiray, A dose lowering technique was utilized adhering to the principles of ALARA. COMPARISON STUDY: Abdominal ultrasound 01/27/2025, CT abdomen and pelvis 01/15/2024 FINDINGS: The lung bases are clear. The liver, spleen, gallbladder, pancreas, and adrenal glands are within normal limits. No hydronephrosis. Duplicated collecting systems and ureters noted on the right. Retroaortic left renal vein. Mild to moderate colonic fecal retention. No bowel obstruction. A few loops of jejunal wall thickening are seen within the midabdomen. Normal appendix. The pelvic organs are unremarkable. No suspicious lytic or blastic osseous lesions. IMPRESSION: 1. No CT evidence of acute appendicitis. 2. Normal appendix. 3. A few loops of jejunum demonstrate mild wall thickening which may be secondary to partial distention versus a mild nonspecific enteritis. ACT 112: Negative or not required by law. The above report was generated using voice recognition software. It may contain grammatical, syntax or spelling errors. Electronically signed by: Trae Blancas M.D. 01/29/2025 3:58 PM Discharge Plan Visit Data Chief Complaint: Abdominal Pain Stated Complaint: BAD GAL BLADDER PAIN, ABD PAIN ED Provider: Juan Perez Discharge Problem: Pancreatitis Forms Stand Alone Forms: My [facility] [email or web address] Prescriptions Prescriptions: No Action paroxetine HCl 10 mg tablet 10 mg PO QAM Rx Instructions: TOTAL DOSE 50 MG--TAKES WITH 40 MG TAB. prazosin 1 mg capsule 1 mg PO HS norethindrone-e.estradiol-iron 1 mg-20 mcg (21)/75 mg (7) tablet 1 tab PO DAILY gabapentin 300 mg capsule See Rx Instructions .ROUTE .COMPLEX Rx Instructions: TAKES 300 MG QAM AND AFTERNOON, THEN 600 MG QHS testosterone cypionate 200 mg/mL oil 0 mg IM DIRECTED Rx Instructions: LAST FILLED 12/18/23 FOR 30 DAYS. paroxetine HCl 40 mg tablet 40 mg PO QAM Rx Instructions: TOTAL DOSE 50 MG--TAKES WITH 10 MG TAB. cholecalciferol (vitamin D3) [Vitamin D3] 25 mcg (1,000 unit) Capsule 25 mcg PO DAILY emtricitabine-tenofovir (TDF) 200-300 mg tablet 1 tab PO DAILY Rx Instructions: LAST FILLED 12/18/23 FOR 30 DAYS aripiprazole 2 mg tablet 2 mg PO HS pantoprazole 40 mg tablet,delayed release (DR/EC) 40 mg PO BID Qty: 60 0RF ondansetron 4 mg tablet,disintegrating 4 mg PO Q6H PRN (Reason: nausea and vomiting) Qty: 20 0RF methylprednisolone [Medrol (Demetri)] 4 mg tablets,dose pack 4 mg PO DIRECTED Qty: 21 0RF Referrals Referrals: Yazmin Matthews MD [Primary Care Provider] -
[2025-01-29] MEDS: MoRPHine SULFATE 4 MG/ML 1 ML CARP\\VIAL IV STA (15:34)
[2025-01-29] MEDS: SODIUM CHLORIDE 0.9% 1,000 ML IV ONE (15:34)
[2025-01-29] MEDS: OPTIRAY 320 100ml IV ONE (15:43)
--- NOTE | 2025-01-29 15:59 | CT Scan Report ---
ABDOMEN AND PELVIS CT WITH IV CONTRAST CT DOSE: 824.11 mGy.cm HISTORY: Acute mid abdominal pain with elevated lipase midepigastric pain, elevated lipase TECHNIQUE: Multiaxial CT images of the abdomen and pelvis were performed following the IV administrat ion of 93 cc of Optiray, A dose lowering technique was utilized adhering to the principles of ALARA. COMPARISON STUDY: Abdominal ultrasound 01/27/2025, CT abdomen and pelvis 01/15/2024 FINDINGS: The lung bases are clear. The liver, spleen, gallbladder, pancreas, and adrenal glands are within normal limits. No hydronephrosis. Duplicated collecting systems and ureters noted on the right . Retroaortic left renal vein. Mild to moderate colonic fecal retention. No bowel obstruction. A few loops of jejunal wall thickenin g are seen within the midabdomen. Normal appendix. The pelvic organs are unremarkable. No suspicious lytic or blastic osseous lesions. IMPRESSION: 1. No CT evidence of acute appendicitis. 2. Normal appendix. 3. A few loops of jejunum demonstrate mild wall thickening which may be secondary to partial distenti on versus a mild nonspecific enteritis. ACT 112: Negative or not required by law. The above report was generated using voice recognition software. It may contain grammatical, syntax o r spelling errors. Electronically signed by: Trae Blancas M.D. 01/29/2025 3:58 PM
--- NOTE | 2025-01-29 17:16 | History & Physical Report ---
Date of Service January 29, 2025 Assessment & Plan (1) Nausea: (2) Pancreatitis: (3) Abdominal pain: (4) Fibromyalgia: (5) Tbikul-wd-[id number] transgender person: (6) GERD (gastroesophageal reflux disease): (7) Depression with anxiety: (8) PTSD (post-traumatic stress disorder): Plan 19 year old transgender female to male with PMH significant for PTSD, depression, anxiety, GERD, and history of pancreatitis who presented to the ED today with abdominal pain, nausea, and vomiting who was found to have acute pancreatitis. Acute pancreatitis Hemodynamically stable Labs remarkable for lipase 293 (up from 01/27), ALT 54 (down from 01/27), total bili 1.7 (down from 01/27) CT abdomen demonstrating possible enteritis, negative for appendicitis US from 01/27 negative for cholelithiasis and cholecystitis Plan: -LR @200mL/hr -Pain management with IV tylenol for mild pain and IV toradol for moderate pain -Clear liquids -Lipid panel in AM -Consult GI given second occurrence of pancreatitis and not in setting of alcohol use Abdominal pain, nausea Likely secondary to pancreatitis and/or possible enteritis IV zofran PRN Depression with anxiety, PTSD Continue abilify, paxil, prazosin, and trazodone per home dosing Fibromyalgia Continue gabapentin per home dosing GERD Continue pantoprazole and famotidine per home dosing DVT Prophylaxis: SCDs Code Status: FULL CODE - As per discussion at bedside with the patient. PCP: Dr Yazmin Matthews MD Disposition: admit to med/surg Patient seen in collaboration with Dr De La O. Please see addendum. I spent a total of 75 minutes coordinating, documenting and providing care for this patient excluding time spent in the performance of separately billed services or time spent by another provider/QHP. Admission and Anticipated Discharge Date Admission Date: 01/29/2025 History of Present Illness Chief Complaint: abdominal pain, N/V Primary Care Provider: Yazmin Matthews MD 19 year old transgender female to male with PMH significant for PTSD, depression, anxiety, GERD, and history of pancreatitis who presented to the ED today with abdominal pain, nausea, and vomiting. His symptoms started on Sunday this week and he was seen in the ED two days ago. He had an abdominal ultrasound that demonstrated fatty infiltration of the liver, no cholelithiasis or cholecystitis. 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 He returned to the ED today because he continues to have abdominal pain and nausea without vomiting. He describes the abdominal pain as sharp in the epigastric region and rates it 8/10. He has not been able to eat due to the nausea. He denies fevers, chills, cough, cold symptoms, chest pain, SOB. He lives with his partner. He reports daily vaping with nicotine and daily THC use. Denies other recreational drug use. Denies alcohol use in the last month. Allergies Allergy/AdvReac Type Severity Reaction Status Date / Time No Known Allergies Allergy Verified 01/15/24 02:55 Home Medications Medication Instructions Recorded Confirmed Type cholecalciferol (vitamin D3) 25 25 mcg PO DAILY 01/15/24 01/29/25 History mcg (1,000 unit) capsule (Vitamin D3) paroxetine HCl 10 mg tablet 10 mg PO QAM 01/15/24 01/29/25 History paroxetine HCl 40 mg tablet 40 mg PO QAM 01/15/24 01/29/25 History prazosin 1 mg capsule 2 mg PO HS 01/15/24 01/29/25 History testosterone cypionate 200 mg/mL 50 mg IM DIRECTED 01/15/24 01/29/25 History intramuscular oil ondansetron 4 mg disintegrating 4 mg PO Q6H PRN nausea and 01/27/25 01/29/25 Rx tablet vomiting #20 tabs aripiprazole 10 mg tablet 10 mg PO DAILY 01/29/25 01/29/25 History famotidine 20 mg disintegrating 20 mg PO HS 01/29/25 01/29/25 History tablet gabapentin 600 mg tablet 600 mg PO TID 01/29/25 01/29/25 History pantoprazole 40 mg tablet,delayed 40 mg PO DAILY 01/29/25 01/29/25 History release trazodone 100 mg tablet 100 mg PO HS 01/29/25 01/29/25 History Past Med/Surg History Problem List Fibromyalgia Pmpalm-rt-ghbu transgender person GERD (gastroesophageal reflux disease) Depression with anxiety PTSD (post-traumatic stress disorder) Nausea Pancreatitis (Acute) Abdominal pain Medical History Acute pancreatitis Surgical History No significant past surgical history Social History (Updated 01/29/25 @ 18:39 by SONALI Colon) Smoking Status: Current every day smoker Tobacco Type: E-cigarettes / Vaping Hx Alcohol Use: Yes Alcohol type: hard liquor Hx Substance Use: Yes Last Used Substance: Hours (ago) Preferred Language: Macedonian Communication Ability: Effective Transplant Immunologist Required: No Beliefs That Will Affect Care: None Current Living Situation: Significant Other Current Living Situation Comment: Will soon be homeless per patient Feels Safe at Home: Yes Gender Identity: Transgender Male Review of Systems Review of Systems: All systems reviewed & are unremarkable except as noted in HPI & below Physical Exam Physical Exam: General/Psych: WD/WN, sitting up in bed, NAD, conversing easily, euthymic affect Head: normocephalic, atraumatic Eyes: normal inspection, PERRL, conjunctivae pink, anicteric sclerae ENT: external ear and nose normal, oropharynx normal Neck: normal visual inspection, trachea midline, no thyromegaly Respiratory: normal respiratory effort, lungs clear to auscultation, no wheeze/rales/rhonchi, no accessory muscle use Cardiovascular: regular rate and rhythm, no murmur/rub/gallop, no JVD Extremities: no cyanosis or clubbing, normal peripheral pulses, no BLE edema Abdomen/GI: normal bowel sounds, soft, no hepatosplenomegaly, tenderness on palpation of abdomen, negative Cascade sign Neurologic/MSK: A+Ox3, motor strength 5/5, moves all extremities Skin: no rashes, normal color, warm and dry Results & Data Results & Data Vital Signs (Past 12 Hours) Vital Signs Temp Pulse Pulse Resp BP BP Pulse Ox 01/29/25 16:00 65 17 97 01/29/25 14:37 51 L 16 116/66 97 01/29/25 14:36 53 L 01/29/25 13:44 36.7 C 56 L 19 117/73 99 O2 Del Method 01/29/25 16:00 Room Air 01/29/25 14:37 Room Air 01/29/25 14:36 01/29/25 13:44 Room Air Laboratory Results Short CBC 01/29/25 Range/Units 14:18 WBC 6.54 (4.8-10.8) K/ul Hgb 15.7 (12.0-16.0) g/dl Hct 45.8 (37.0-47.0) % Plt Count 310 (130-400) K/uL BMP 01/29/25 14:18 Sodium 140 Potassium 4.2 Chloride 106 Carbon Dioxide 30 BUN 14 Creatinine 0.91 Glucose 94 Calcium 10.3 Liver Function 01/29/25 Range/Units 14:18 Total Bilirubin 1.7 H (0.2-1.0) mg/dl AST 31 (13-39) U/L ALT 54 H (7-52) U/L Alkaline Phosphatase 84 (34-104) U/L Albumin 5.4 H (3.4-5.0) gm/dl Urine 01/29/25 Range/Units 14:18 Urine Color Yellow Urine Appearance Clear (Clear) Urine pH 8.5 H (4.5-7.5) Ur Specific [place] 1.025 (1.000-1.030) Urine Protein Negative (Negative) Urine Glucose (UA) Negative (Negative) I have independently reviewed and interpreted patient's admitting labs including CBC, CMP, lipase, UA, tox screen. Diagnostic Findings Abdomen/Pelvis CT 01/29/25 15:[address] WITH IV CONTRAST CT DOSE: 824.11 mGy.cm HISTORY: Acute mid abdominal pain with elevated lipase midepigastric pain, elevated lipase TECHNIQUE: Multiaxial CT images of the abdomen and pelvis were performed following the IV administration of 93 cc of Optiray, A dose lowering technique was utilized adhering to the principles of ALARA. COMPARISON STUDY: Abdominal ultrasound 01/27/2025, CT abdomen and pelvis 01/15/2024 FINDINGS: The lung bases are clear. The liver, spleen, gallbladder, pancreas, and adrenal glands are within normal limits. No hydronephrosis. Duplicated collecting systems and ureters noted on the right. Retroaortic left renal vein. Mild to moderate colonic fecal retention. No bowel obstruction. A few loops of jejunal wall thickening are seen within the midabdomen. Normal appendix. The pelvic organs are unremarkable. No suspicious lytic or blastic osseous lesions. IMPRESSION: 1. No CT evidence of acute appendicitis. 2. Normal appendix. 3. A few loops of jejunum demonstrate mild wall thickening which may be secondary to partial distention versus a mild nonspecific enteritis. ACT 112: Negative or not required by law. The above report was generated using voice recognition software. It may contain grammatical, syntax or spelling errors. Electronically signed by: Trae Blancas M.D. 01/29/2025 3:58 PM Medications Administered Current Inpatient Medications Aripiprazole (Aripiprazole 10 Mg Tab) 10 mg PO DAILY ALESSIO Stop: 03/01/25 08:59 Famotidine (Famotidine 20 Mg Tab) 20 mg PO HS ALESSIO Stop: 02/28/25 20:59 Gabapentin (Gabapentin 600 Mg Tab) 600 mg PO TID ALESSIO Stop: 02/28/25 20:59 Acetaminophen (Ofirmev) 1,000 mg in 100 mls @ 400 mls/hr IV Q8H PRN PRN Reason: Mild Pain (Scale 1, 2, 3) Stop: 02/01/25 18:01 Lactated Ringer's (Lr) 1,000 mls @ 200 mls/hr IV .Q5H ALESSIO Stop: 01/30/25 18:14 Last Admin: 01/29/25 18:37 Dose: 200 mls/hr Ketorolac Tromethamine (Ketorolac Tromethamine 15 Mg/Ml Vial) 15 mg IV Q6H PRN PRN Reason: Moderate Pain (Scale 4, 5, 6) Stop: 02/03/25 22:59 Morphine Sulfate (Morphine Sulfate 2 Mg/Ml Carp) 2 mg IV Q4 PRN PRN Reason: Mod-Sev Pain (Scale 4-10) Stop: 02/12/25 18:01 Ondansetron HCl (Ondansetron Inj 2 Mg/Ml 2 Ml Vial) 4 mg IV Q6H PRN PRN Reason: Nausea And Vomiting Stop: 02/28/25 18:33 Pantoprazole Sodium (Pantoprazole 40 Mg Tab) 40 mg PO DAILY ALESSIO Stop: 03/01/25 08:59 Paroxetine HCl (Paroxetine Hcl 10 Mg Tab) 10 mg PO QAM ALESSIO Stop: 03/01/25 08:59 Paroxetine HCl (Paroxetine Hcl 20 Mg Tab) 40 mg PO QAM ALESSIO Stop: 03/01/25 08:59 Prazosin HCl (Prazosin Hcl 1 Mg Cap) 2 mg PO HS [facility] Stop: 02/28/25 20:59 Trazodone HCl (Trazodone Hcl 100 Mg Tab) 100 mg PO HS ALESSIO Stop: 02/28/25 20:59 Vitamin D (Cholecalciferol 25 Mcg (1000 Units) Tab) 25 mcg PO DAILY ALESSIO Stop: 03/01/25 08:59 Code Status & VTE Plan Code Status Full Code VTE Prophylaxis Plan VTE Prophylaxis will be ordered: Yes Supervising Physician Co-Signing Physician Notes 19-year-old transgender female to male with PMH of PTSD, depression, anxiety, GERD and pancreatitis presented to the ED with persistent abdominal pain and nausea. Patient presented 2 days ago with abdominal pain, nausea, vomiting and was sent home on Zofran with patient has not collected yet and because his abdominal pain and nausea was persistent [vomiting has been controlled per patient] he presented back to the ED again. Patient denies fever/sore throat/cough/chest pain. Labs and imaging reviewed. CBC, electrolytes, renal function test WNL. LFT slightly elevated but downtrending compared to 01/27/2025 lab. Lipase elevated at 293 up from 2 days ago. UA negative for UTI. Likely acute pancreatitis: N.p.o., continue with IV fluids, pain management with IV Tylenol and IV ketorolac, will hold morphine as pt bradycardic after morphine in ED. GI consult. get triglyceride level. On exam: GENERAL: Alert and oriented x3. NAD, on RA. HEENT: No pallor, no icterus. Pupils equal, round and reactive to light. Oral mucosa moist. NECK: No JVD, no neck masses. HEART: S1 and S2 heard. Regular rate and rhythm. bradycardia, HR high 40s. No murmur, no gallop. RESPIRATORY SYSTEM: Normal AP diameter. No accessory muscle use. No wheezing, no crackles. ABDOMEN: Soft, bowel sounds present, tender upper belly, no distention. CENTRAL NERVOUS SYSTEM: No facial droop. Speech is clear. Obeys simple commands. Moves extremities. EXTREMITIES: No edema, no erythema seen. I have seen and examined the patient and have discussed the case with the provider above. I agree with the assessment and plan as stated. Time spent: 25 min
[2025-01-29 17:26] LABS: Amphetamines+Metham, Urine Neg (Neg); Barbiturates, Urine Neg (Neg); Benzodiazepine, Urine Neg (Neg); Cocaine, Urine Neg (Neg); Fentanyl, Urine Neg (Neg); MDMA (Ecstacy), Urine Neg (Neg); Marijuana, Urine Pos (Neg); Methadone, Urine Neg (Neg); Opiate, Urine Neg (Neg); Phencyclidine, Urine Neg (Neg)
[2025-01-29 17:33] LABS: Pregnancy Test, Urine Negative (Negative)
[2025-01-29] MEDS: LACTATED RINGER'S 1,000 ML IV SCH (18:37)
[2025-01-29] MEDS: KETOROLAC TROMETHAMINE 15 MG/ML VIAL IV ONE (18:37)
[2025-01-29] MEDS: ONDANSETRON INJ 2 MG/ML 2 ML VIAL IV PRN (21:50)
[2025-01-29] MEDS: traZODone HCL 100 MG TAB PO SCH (23:05)
[2025-01-29] MEDS: PRAZOSIN HCL 1 MG CAP PO SCH (23:05)
[2025-01-29] MEDS: GABAPENTIN 600 MG TAB PO SCH (23:06)
[2025-01-29] MEDS: FAMOTIDINE 20 MG TAB PO SCH (23:15)
[2025-01-30] MEDS: PARoxetine HCL 20 MG TAB PO SCH (08:49)
[2025-01-30] MEDS: PARoxetine HCL 10 MG TAB PO SCH (08:49)
[2025-01-30] MEDS: PANTOprazole 40 MG TAB PO SCH (08:49)
[2025-01-30] MEDS: CHOLECALCIFEROL 25 MCG (1000 UNITS) TAB PO SCH (08:49)
[2025-01-30] MEDS: ARIPiprazole 10 MG TAB PO SCH (08:49)
[2025-01-30 10:03] LABS: Albumin Level 3.9 gm/dl (3.4-5.0); BUN Creatinine Ratio 9.5 (10-20); Bilirubin,Total 1.8 mg/dl (0.2-1.0); Calcium 8.7 mg/dl (8.6-10.3); Magnesium 1.8 mg/dl (1.7-2.4); Phosphorus 3.8 mg/dl (2.5-4.9); Potassium 4.1 mmol/L (3.5-5.1); Total Protein 5.9 gm/dl (6.0-8.3)
[2025-01-30 10:19] LABS: Basophils # (auto) 0.04 K/uL (0.00-0.20); Basophils % (auto) 0.8 %; Eosinophils # (auto) 0.19 K/uL (0.00-0.50); Eosinophils % (auto) 3.6 %; Hematocrit (blood only) 42.3 % (37.0-47.0); Hemoglobin 14.3 g/dl (12.0-16.0); Immature Granulocytes # (auto) 0.04 K/uL (0.01-0.20); Immature Granulocytes % (auto) 0.8 %; Lymphocytes # (auto) 2.38 K/uL (1.20-3.40); Lymphocytes % (auto) 45.1 %; Mean Corpuscular Hemoglobin 31.1 pg (25.0-34.0); Mean Corpuscular Hgb Conc 33.8 g/dL (32.0-36.0); Mean Platelet Volume 10.1 fL (9.4-12.4); Monocytes # (auto) 0.45 K/uL (0.11-0.59); Monocytes % (auto) 8.5 %; Neutrophils # (auto) 2.18 K/uL (1.40-6.50); Neutrophils % (auto) 41.2 %; Platelet Count 264 K/uL (130-400); RDW Coefficient of Variation 12.7 % (11.5-14.5); RDW Standard Deviation 42.6 fL (36.4-46.3); White Blood Count 5.28 K/ul (4.8-10.8)
--- NOTE | 2025-01-30 12:26 | Hospitalist Progress Note ---
Date of Service January 30, 2025 Assessment & Plan (1) Nausea: (2) Pancreatitis: (3) Abdominal pain: (4) Fibromyalgia: (5) Csewyh-my-erwh transgender person: (6) GERD (gastroesophageal reflux disease): (7) Depression with anxiety: (8) PTSD (post-traumatic stress disorder): Plan 19 year old transgender female to male with PMH significant for PTSD, depression, anxiety, GERD, and history of pancreatitis who presented to the ED today with abdominal pain, nausea, and vomiting who was found to have acute pancreatitis. Acute pancreatitis Hemodynamically stable Labs remarkable for lipase 293 (up from 01/27), ALT 54 (down from 01/27), total bili 1.7 (down from 01/27) CT abdomen demonstrating possible enteritis, negative for appendicitis US from 01/27 negative for cholelithiasis and cholecystitis -Pain management -Clear liquids -Lipid panel without triglyceridemia -Consult GI, appreciate recs Abdominal pain, nausea Likely secondary to pancreatitis and/or possible enteritis IV zofran PRN Bradycardia Pt with noted HR in the 50s Possibly due to use of pain meds like the narcs vs. increased vagal tone Continue to monitor Depression with anxiety, PTSD Continue abilify, paxil, prazosin, and trazodone per home dosing Fibromyalgia Continue gabapentin per home dosing GERD Continue pantoprazole and famotidine per home dosing DVT Prophylaxis: SCDs Code Status: FULL CODE - As per discussion at bedside with the patient. PCP: Dr Yazmin Matthews MD Disposition: home once medically stable Admission and Anticipated Discharge Date Admission Date: January 29, 2025 Subjective Pt was seen multiple times during the day Intially in the AM pt stated could not tolerate food But otherwise pain controlled Later called to bedside for pain that seemed to be spreading from abd to shoulder Morphine restarted, lidocaine patch ordered, ekg unremarkable Review of Systems Review of Systems: All systems reviewed & are unremarkable except as noted in Subjective Physical Exam Physical Exam: General: Alert, oriented. No acute distress Skin: No noted rashes or bruises Psych: Appropriate mood and affect Neuro: No gross deficits HEENT: NC/AT CV: RRR Resp: Breath sounds clear bilaterally, no increased effort of breathing Abdomen: Soft, tender Extremities: No edema in lower extremities bilaterally. Results & Data Results & Data Vital Signs (Past 12 Hours) Vital Signs Temp Pulse Resp BP Pulse Ox O2 Del Method 01/30/25 08:00 Room Air 01/30/25 07:03 36.3 C L 55 L 14 118/78 97 Room Air Diagnostic Findings Abdomen/Pelvis CT 01/29/25 15:[address] WITH IV CONTRAST CT DOSE: 824.11 mGy.cm HISTORY: Acute mid abdominal pain with elevated lipase midepigastric pain, elevated lipase TECHNIQUE: Multiaxial CT images of the abdomen and pelvis were performed following the IV administration of 93 cc of Optiray, A dose lowering technique was utilized adhering to the principles of ALARA. COMPARISON STUDY: Abdominal ultrasound 01/27/2025, CT abdomen and pelvis 01/15/2024 FINDINGS: The lung bases are clear. The liver, spleen, gallbladder, pancreas, and adrenal glands are within normal limits. No hydronephrosis. Duplicated collecting systems and ureters noted on the right. Retroaortic left renal vein. Mild to moderate colonic fecal retention. No bowel obstruction. A few loops of jejunal wall thickening are seen within the midabdomen. Normal appendix. The p elvic organs are unremarkable. No suspicious lytic or blastic osseous lesions. IMPRESSION: 1. No CT evidence of acute appendicitis. 2. Normal appendix. 3. A few loops of jejunum demonstrate mild wall thickening which may be secondary to partial distention versus a mild nonspecific enteritis. ACT 112: Negative or not required by law. The above report was generated using voice recognition software. It may contain grammatical, syntax or spelling errors. Electronically signed by: Trae Blancas M.D. 01/29/2025 3:58 PM
--- NOTE | 2025-01-30 12:57 | Gastrointestinal Consultation ---
Date of Consultation January 30, 2025 Assessment & Plan (1) Pancreatitis: -Continue IV fluid hydration -Continue pain management -Continue liquid diet -Will discuss further with Dr. Winslow regarding possible further work-up as an outpatient to include IgG subclasses and/or EUS. Supervising Physician Co-Signing Physician Notes I examined the patient and reviewed patient's chart , laboratory data and imaging studies. I agree with with assessment and plan of care as suggested by advanced practice provider. Chronic recurrent abdominal pain with minimally elevated lipase and consistently normal pancreas on imaging. The patient was evaluated in June 2024 with EGD and endoscopic ultrasound at another institution. EGD was normal, duodenal biopsies were normal. Endoscopic ultrasound demonstrated normal pancreas, normal pancreatic duct, normal biliary ducts, normal gallbladder and normal liver. The nature of patient's recurrent pain is not clear. If pain continues follow-up in GI office to be arranged. History of Present Illness Reason for Consultation: Pancreatitis Attending Physician: Tiarra Conroy MD History of Present Illness Patient is a 19 yo who presents for pancreatitis. Patient notes that abdominal pain, nausea, vomiting developed over the past week and led to the ED visit 2 days ago. An US demonstrated fatty infiltration of the liver at that time without cholelithiasis, or cholecystitis. Patient was discharged, but returned to the ED due to ongoing epigastric pain 05/24. Patient was admitted. Lipase 293. LFTs unremarkable. Patient denies alcohol use at present. No new meds/supplements lately. Lipid panel normal. CT abdomen/pelvis IMPRESSION: 1. No CT evidence of acute appendicitis. 2. Normal appendix. 3. A few loops of jejunum demonstrate mild wall thickening which may be secondary to partial distention versus a mild nonspecific enteritis. US abdomen/Impression: 1. Fatty infiltration of the liver 2. Otherwise unremarkable right upper quadrant abdominal sonogram Patient is tolerating clear liquids. Allergies Allergy/AdvReac Type Severity Reaction Status Date / Time No Known Allergies Allergy Verified 01/15/24 02:55 Home Medications Medication Instructions Recorded Confirmed Type cholecalciferol (vitamin D3) 25 25 mcg PO DAILY 01/15/24 01/29/25 History mcg (1,000 unit) capsule (Vitamin D3) paroxetine HCl 10 mg tablet 10 mg PO QAM 01/15/24 01/29/25 History paroxetine HCl 40 mg tablet 40 mg PO QAM 01/15/24 01/29/25 History prazosin 1 mg capsule 2 mg PO HS 01/15/24 01/29/25 History testosterone cypionate 200 mg/mL 50 mg IM DIRECTED 01/15/24 01/29/25 History intramuscular oil ondansetron 4 mg disintegrating 4 mg PO Q6H PRN nausea and 01/27/25 01/29/25 Rx tablet vomiting #20 tabs aripiprazole 10 mg tablet 10 mg PO DAILY 01/29/25 01/29/25 History famotidine 20 mg disintegrating 20 mg PO HS 01/29/25 01/29/25 History tablet gabapentin 600 mg tablet 600 mg PO TID 01/29/25 01/29/25 History pantoprazole 40 mg tablet,delayed 40 mg PO DAILY 01/29/25 01/29/25 History release trazodone 100 mg tablet 100 mg PO HS 01/29/25 01/29/25 History Patient History Medical History Acute pancreatitis Surgical History No significant past surgical history Social History Smoking Status: Current every day smoker Tobacco Type: E-cigarettes / Vaping Hx Alcohol Use: No Hx Substance Use: No Preferred Language: Occitan Communication Ability: Effective Electronic Assembler Required: No Beliefs That Will Affect Care: None Current Living Situation: Family Current Living Situation Comment: Will soon be homeless per patient Other Information That Helps Us Care for You: No Feels Safe at Home: Yes Safety Concerns: Feels Safe At This Time Gender Identity: Transgender Male Assistive Devices: Cane and Walker Review of Systems Constitutional: no fever and no chills Respiratory: no cough and no dyspnea Gastrointestinal: + abdominal pain; no diarrhea/loose stoo ls Results & Data Vital Signs (Past 12 Hours) Vital Signs Temp Pulse Resp BP Pulse Ox O2 Del Method 01/30/25 08:00 Room Air 01/30/25 07:03 36.3 C L 55 L 14 118/78 97 Room Air PG Care Time/CCT Total # of Minutes Spent Total Time Spent with Patient: Total time spent is greater than 50% in coordination of care (as documented) at patient's floor/unit and/or counseling patient: Coding Level of Care Code 83863 IN/OBS CONSULT LVL 4,60M Diagnoses Pancreatitis K85.90
--- NOTE | 2025-01-30 14:21 | Electrocardiogram Report ---
Test Reason : Blood Pressure : */* mmHG Vent. Rate : 49 BPM Atrial Rate : 49 BPM P-R Int : 140 ms QRS Dur : 84 ms QT Int : 444 ms P-R-T Axes : 14 9 23 degrees QTcB Int : 401 ms Sinus bradycardia Otherwise normal ECG No previous ECGs available Confirmed by Vinod Garcia ([id number]) on 01/30/2025 2:21:17 PM Referred By: REFERRED SELF Confirmed By: Vinod Garcia
[2025-01-30 15:19] VITALS: RESP 16
[2025-01-30] MEDS: KETOROLAC TROMETHAMINE 15 MG/ML VIAL IV PRN (15:54)
[2025-01-30] MEDS: ACETAMINOPHEN 1,000 MG/100 ML VIAL IV PRN (17:13)
[2025-01-30] MEDS: MoRPHine SULFATE 2 MG/ML CARP IV PRN (17:54)
[2025-01-30] MEDS: LIDOCAINE 5% 1 PATCH TD STA (19:25)
[2025-01-30] MEDS: DOCUSATE SODIUM 100 MG CAP PO SCH (20:34)
[2025-01-31 06:47] LABS: Basophils # (auto) 0.04 K/uL (0.00-0.20); Basophils % (auto) 0.7 %; Eosinophils # (auto) 0.12 K/uL (0.00-0.50); Eosinophils % (auto) 2.2 %; Hematocrit (blood only) 43.6 % (37.0-47.0); Hemoglobin 14.7 g/dl (12.0-16.0); Lymphocytes # (auto) 2.46 K/uL (1.20-3.40); Lymphocytes % (auto) 46.1 %; Mean Corpuscular Hemoglobin 31.5 pg (25.0-34.0); Mean Corpuscular Hgb Conc 33.7 g/dL (32.0-36.0); Mean Corpuscular Volume 93.6 fL (80.0-100.0); Mean Platelet Volume 9.5 fL (9.4-12.4); Monocytes # (auto) 0.39 K/uL (0.11-0.59); Monocytes % (auto) 7.3 %; Neutrophils # (auto) 2.33 K/uL (1.40-6.50); Neutrophils % (auto) 43.7 %; Platelet Count 263 K/uL (130-400); RDW Coefficient of Variation 12.6 % (11.5-14.5); RDW Standard Deviation 43.4 fL (36.4-46.3); Red Blood Count 4.66 M/uL (4.20-5.40); White Blood Count 5.34 K/ul (4.8-10.8)
[2025-01-31 07:12] LABS: Albumin Globulin Ratio 1.8 (0.9-2); Albumin Level 4.2 gm/dl (3.4-5.0); BUN Creatinine Ratio 5.8 (10-20); Bilirubin,Total 1.6 mg/dl (0.2-1.0); Creatinine Clr Calc Pharmacy 89.7 ml/min; Globulin 2.3 gm/dl (2.5-4.0); Phosphorus 4.4 mg/dl (2.5-4.9); Potassium 4.2 mmol/L (3.5-5.1); Total Protein 6.5 gm/dl (6.0-8.3)
--- NOTE | 2025-01-31 08:58 | Electrocardiogram Report ---
Test Reason : Blood Pressure : */* mmHG Vent. Rate : 60 BPM Atrial Rate : 60 BPM P-R Int : 126 ms QRS Dur : 82 ms QT Int : 412 ms P-R-T Axes : 12 -19 14 degrees QTcB Int : 412 ms Normal sinus rhythm Normal ECG When compared with ECG of 29-Jan-2025 19:59, No significant change was found Confirmed by Vinod Garcia ([id number]) on 01/31/2025 8:57:47 AM Referred By: REFERRED SELF Confirmed By: Vinod Garcia
[2025-01-31] MEDS: ACETAMINOPHEN 500 MG TAB PO PRN (14:45)
--- NOTE | 2025-01-31 17:11 | Hospitalist Progress Note ---
Date of Service January 31, 2025 Assessment & Plan (1) Nausea: (2) Pancreatitis: (3) Abdominal pain: (4) Fibromyalgia: (5) [id number] transgender person: (6) GERD (gastroesophageal reflux disease): (7) Depression with anxiety: (8) PTSD (post-traumatic stress disorder): Plan 19 year old transgender female to male with PMH significant for PTSD, depression, anxiety, GERD, and history of pancreatitis who presented to the ED today with abdominal pain, nausea, and vomiting who was found to have acute pancreatitis. Acute pancreatitis Hemodynamically stable Labs remarkable for lipase 293 (up from 01/27), ALT 54 (down from 01/27), total bili 1.7 (down from 01/27) CT abdomen demonstrating possible enteritis, negative for appendicitis US from 01/27 negative for cholelithiasis and cholecystitis -Pain management -advancing diet as tolerated -Lipid panel without triglyceridemia -Consult GI, appreciate recs Abdominal pain, nausea Likely secondary to pancreatitis and/or possible enteritis IV zofran PRN Bradycardia Pt with noted HR in the 50s Possibly due to use of pain meds like the narcs vs. increased vagal tone Continue to monitor Depression with anxiety, PTSD Continue abilify, paxil, prazosin, and trazodone per home dosing Fibromyalgia Continue gabapentin per home dosing GERD Continue pantoprazole and famotidine per home dosing DVT Prophylaxis: SCDs Code Status: FULL CODE - As per discussion at bedside with the patient. PCP: Dr Yazmin Matthews MD Disposition: home once medically stable Admission and Anticipated Discharge Date Admission Date: January 29, 2025 Subjective pt was seen in the AM requesting medication for headache Review of Systems Review of Systems: All systems reviewed & are unremarkable except as noted in Subjective Physical Exam Physical Exam: General: Alert, oriented. No acute distress Skin: No noted rashes or bruises Psych: Appropriate mood and affect Neuro: No gross deficits HEENT: NC/AT CV: RRR Resp: Breath sounds clear bilaterally, no increased effort of breathing Abdomen: Soft, tender Extremities: No edema in lower extremities bilaterally. Results & Data Results & Data Vital Signs (Past 12 Hours) Vital Signs Temp Pulse Resp BP Pulse Ox O2 Del Method 01/31/25 14:08 36.6 C 65 16 108/62 94 Room Air 01/31/25 08:00 Room Air 01/31/25 06:59 36.3 C L 58 L 16 98/59 L 97 Room Air
[2025-01-31 19:35] VITALS: O2SAT 96
[2025-02-01 06:45] LABS: Basophils # (auto) 0.04 K/uL (0.00-0.20); Basophils % (auto) 0.7 %; Eosinophils # (auto) 0.15 K/uL (0.00-0.50); Eosinophils % (auto) 2.5 %; Hematocrit (blood only) 40.7 % (37.0-47.0); Hemoglobin 14.5 g/dl (12.0-16.0); Immature Granulocytes # (auto) 0.01 K/uL (0.01-0.20); Immature Granulocytes % (auto) 0.2 %; Lymphocytes # (auto) 2.57 K/uL (1.20-3.40); Mean Corpuscular Hemoglobin 32.5 pg (25.0-34.0); Mean Corpuscular Hgb Conc 35.6 g/dL (32.0-36.0); Mean Corpuscular Volume 91.3 fL (80.0-100.0); Mean Platelet Volume 9.9 fL (9.4-12.4); Monocytes # (auto) 0.51 K/uL (0.11-0.59); Monocytes % (auto) 8.5 %; Neutrophils % (auto) 45.1 %; Platelet Count 266 K/uL (130-400); RDW Standard Deviation 40.3 fL (36.4-46.3); Red Blood Count 4.46 M/uL (4.20-5.40); White Blood Count 5.98 K/ul (4.8-10.8)
[2025-02-01 07:21] LABS: Albumin Globulin Ratio 1.7 (0.9-2); BUN Creatinine Ratio 11.1 (10-20); Bilirubin,Total 0.8 mg/dl (0.2-1.0); Calcium 8.7 mg/dl (8.6-10.3); Creatinine Clr Calc Pharmacy 93.3 ml/min; Globulin 2.4 gm/dl (2.5-4.0); Magnesium 2.1 mg/dl (1.7-2.4); Phosphorus 4.6 mg/dl (2.5-4.9); Potassium 4.1 mmol/L (3.5-5.1); Total Protein 6.4 gm/dl (6.0-8.3)
[2025-02-01 07:34] VITALS: BP 101/67; PULSE 52; TEMP 97.5
--- NOTE | 2025-02-01 11:42 | Discharge Summary ---
Discharge Summary Date of Service February 01, 2025 Principal Dx & Hospital Course #1 = Principal Diagnosis (1) Nausea: (2) Pancreatitis: (3) Abdominal pain: (4) Fibromyalgia: (5) [id number] transgender person: (6) GERD (gastroesophageal reflux disease): (7) Depression with anxiety: (8) PTSD (post-traumatic stress disorder): Plan 19 year old transgender female to male with PMH significant for PTSD, depression, anxiety, GERD, and history of pancreatitis who presented to the ED today with abdominal pain, nausea, and vomiting who was found to have acute pancreatitis. Acute pancreatitis Hemodynamically stable Labs remarkable for lipase 293 (up from 01/27), ALT 54 (down from 01/27), total bili 1.7 (down from 01/27) CT abdomen demonstrating possible enteritis, negative for appendicitis, pancreas within normal limits US from 01/27 negative for cholelithiasis and cholecystitis Pain management Advancing diet as tolerated Lipid panel without triglyceridemia Consult GI, appreciate recs. GI recommendations from Dr Michael Winslow as follows: "...Chronic recurrent abdominal pain with minimally elevated lipase and consistently normal pancreas on imaging. The patient was evaluated in June 2024 with EGD and endoscopic ultrasound at another institution. EGD was normal, duodenal biopsies were normal. Endoscopic ultrasound demonstrated normal pancreas, normal pancreatic duct, normal biliary ducts, normal gallbladder and normal liver. The nature of patient's recurrent pain is not clear. If pain continues follow-up in GI office to be arranged..." On the day of discharge, pt stating that pain was minimal and wanting to go home. Was tolerating diet without issue. Close to 24 hr pain medication free. Will need close GI and PCP follow up. Appts to be scheduled. Abdominal pain, nausea Likely secondary to pancreatitis and/or possible enteritis Antiemetics prn Resolved on discharge Bradycardia Pt with noted HR in the 50s, asymptomatic Possibly due to use of pain meds like the narcs vs. increased vagal tone in setting of above PCP follow up for continued monitoring Depression with anxiety, PTSD Continue abilify, paxil, prazosin, and trazodone per home dosing Fibromyalgia Continue gabapentin per home dosing GERD Continue pantoprazole and famotidine per home dosing Notes For Next Care Provider Medication Changes From Visit None Admission HPI Per Admitting Provider 19 year old transgender female to male with PMH significant for PTSD, depression, anxiety, GERD, and history of pancreatitis who presented to the ED today with abdominal pain, nausea, and vomiting. His symptoms started on Sunday this week and he was seen in the ED two days ago. He had an abdominal ultrasound that demonstrated fatty infiltration of the liver, no cholelithiasis or cholecystitis. He was managed with IV zofran and discharged with a script for ODT zofran that he was never able to hop picker. He returned to the ED today because he continues to have abdominal pain and nausea without vomiting. He describes the abdominal pain as sharp in the epigastric region and rates it 8/10. He has not been able to eat due to the nausea. He denies fevers, chills, cough, cold symptoms, chest pain, SOB. He lives with his partner. He reports daily vaping with nicotine and daily THC use. Denies other recreational drug use. Denies alcohol use in the last month. Admission Exam Per Admitting Provider General/Psych: WD/WN, sitting up in bed, NAD, conversing easily, euthymic affect Head: normocephalic, atraumatic Eyes: normal inspection, PERRL, conjunctivae pink, anicteric sclerae ENT: external ear and nose normal, oropharynx normal Neck: normal visual inspection, trachea midline, no thyromegaly Respiratory: normal respiratory effort, lungs clear to auscultation, no wheeze/rales/rhonchi, no accessory muscle use Cardiovascular: regular rate and rhythm, no murmur/rub/gallop, no JVD Extremities: no cyanosis or clubbing, normal peripheral pulses, no BLE edema Abdomen/GI: normal bowel sounds, soft, no hepatosplenomegaly, tenderness on palpation of abdomen, negative [place] sign Neurologic/MSK: A+Ox3, motor strength 5/5, moves all extremities Skin: no rashes, normal color, warm and dry Discharge Exam General: Alert, oriented. No acute distress Skin: No noted rashes or bruises Psych: Appropriate mood and affect Neuro: No gross deficits HEENT: NC/AT CV: RRR Resp: Breath sounds clear bilaterally, no increased effort of breathing Abdomen: Soft, mildly tender diffusely Extremities: No edema in lower extremities bilaterally. Updated Medication List Medication Instructions Recorded Confirmed Type cholecalciferol (vitamin D3) 25 25 mcg PO DAILY 01/15/24 01/29/25 History mcg (1,000 unit) capsule (Vitamin D3) paroxetine HCl 10 mg tablet 10 mg PO QAM 01/15/24 01/29/25 History paroxetine HCl 40 mg tablet 40 mg PO QAM 01/15/24 01/29/25 History prazosin 1 mg capsule 2 mg PO HS 01/15/24 01/29/25 History testosterone cypionate 200 mg/mL 50 mg IM DIRECTED 01/15/24 01/29/25 History intramuscular oil ondansetron 4 mg disintegrating 4 mg PO Q6H PRN nausea and 01/27/25 01/29/25 Rx tablet vomiting #20 tabs aripiprazole 10 mg tablet 10 mg PO DAILY 01/29/25 01/29/25 History famotidine 20 mg disintegrating 20 mg PO HS 01/29/25 01/29/25 History tablet gabapentin 600 mg tablet 600 mg PO TID 01/29/25 01/29/25 History pantoprazole 40 mg tablet,delayed 40 mg PO DAILY 01/29/25 01/29/25 History release trazodone 100 mg tablet 100 mg PO HS 01/29/25 01/29/25 History Hospital Stay Data Consultations 01/29/25 16:24 ED Decision to Admit Stat 01/29/25 18:34 Consult Gastroenterology Routine Diagnostic Imagining Performed 01/29/25 15:29 CT abd pelvis IV con only Stat Abdomen/Pelvis CT 01/29/25 15:[address] WITH IV CONTRAST CT DOSE: 824.11 mGy.cm HISTORY: Acute mid abdominal pain with elevated lipase midepigastric pain, elevated lipase TECHNIQUE: Multiaxial CT images of the abdomen and pelvis were performed following the IV administration of 93 cc of Optiray, A dose lowering technique was utilized adhering to the principles of ALARA. COMPARISON STUDY: Abdominal ultrasound 01/27/2025, CT abdomen and pelvis 01/15/2024 FINDINGS: The lung bases are clear. The liver, spleen, gallbladder, pancreas, and adrenal glands are within normal limits. No hydronephrosis. Duplicated collecting systems and ureters noted on the right. Retroaortic left renal vein. Mild to moderate colonic fecal retention. No bowel obstruction. A few loops of jejunal wall thickening are seen within the midabdomen. Normal appendix. The pelvic organs are unremarkable. No suspicious lytic or blastic osseous lesions. IMPRESSION: 1. No CT evidence of acute appendicitis. 2. Normal appendix. 3. A few loops of jejunum demonstrate mild wall thickening which may be secondary to partial distention versus a mild nonspecific enteritis. ACT 112: Negative or not required by law. The above report was generated using voice recognition software. It may contain grammatical, syntax or spelling errors. Electronically signed by: Trae Blancas M.D. 01/29/2025 3:58 PM Discharge Instructions Given to Patient (Per Discharging Provider) Shirlene, You were admitted and treated for abdominal pain. You were seen by the [facility] bag sewer and they would like to follow up with you as an outpatient to continue to find out the true source of your pain. At this time your pain seems to have resolved and you are tolerating food well. You've not required pain medication for at least 24 hours. Please keep close follow up with your primary care provider and gastroenterology after discharge. Please do not hesitate to come back to the emergency room if your symptoms worsen or return. It was a pleasure taking care of you while you were here. Total Time Total Time Spent Total Time Spent (In Minutes): 60
[2025-02-01 15:47] LABS: Marijuana Quant, GCMS Urine 922 ng/mL (<5)
== END 2025-02-01 14:33 | disposition home or self-care (01) | DRG 440 ==
LOC: ED 13:37 → 3N 17:10 → SUATTDRO 17:10 → 3N 18:20

== ENCOUNTER 2025-02-19 10:44 | Observation (INO) ==
[2025-02-19 11:28] LABS: Basophils # (auto) 0.04 K/uL (0.00-0.20); Basophils % (auto) 0.6 %; Eosinophils # (auto) 0.14 K/uL (0.00-0.50); Hematocrit (blood only) 43.5 % (37.0-47.0); Hemoglobin 15.1 g/dl (12.0-16.0); Immature Granulocytes # (auto) 0.01 K/uL (0.01-0.20); Immature Granulocytes % (auto) 0.1 %; Mean Corpuscular Hemoglobin 31.2 pg (25.0-34.0); Mean Corpuscular Hgb Conc 34.7 g/dL (32.0-36.0); Mean Corpuscular Volume 89.9 fL (80.0-100.0); Mean Platelet Volume 9.7 fL (9.4-12.4); Monocytes % (auto) 9.9 %; Neutrophils % (auto) 63.4 %; Platelet Count 316 K/uL (130-400); RDW Coefficient of Variation 11.9 % (11.5-14.5); RDW Standard Deviation 39.3 fL (36.4-46.3); Red Blood Count 4.84 M/uL (4.20-5.40); White Blood Count 7.09 K/ul (4.8-10.8)
[2025-02-19 11:39] LABS: Appearance Urine Turbid (Clear); Bacteria Urine Automated None Seen (None Seen); Bilirubin Urine Negative (Negative); Blood Urine Negative (Negative); Cast Urine Automated 0-2 /lpf (0-2); Color Urine Yellow; Epithelial Cell Urine Auto 0-2 /hpf (0-2); Glucose Urine UA Negative (Negative); Ketones Urine Trace (Negative); Leukocyte Esterase Urine Negative (Negative); Nitrite Urine Negative (Negative); Protein Urine Negative (Negative); RBC Urine Automated 0-2 /hpf (0-2); Specific Gravity Urine 1.027 (1.000-1.030); Urobilinogen Urine Negative (Negative); WBC Urine Automated 0-5 /hpf (0-5)
[2025-02-19 12:05] LABS: Alanine Aminotransferase 48 U/L (7-52); Albumin Level 5.1 gm/dl (3.4-5.0); Alkaline Phosphatase 85 U/L (34-104); Anion Gap 7 (3-11); Aspartate Aminotransferase 34 U/L (13-39); BUN Creatinine Ratio 14.2 (10-20); Bilirubin,Total 1.3 mg/dl (0.2-1.0); Blood Urea Nitrogen 16 mg/dl (6-23); Calcium 9.6 mg/dl (8.6-10.3); Carbon Dioxide 28 mmol/L (21-32); Chloride 107 mmol/L (98-107); Creatinine Clr Calc Pharmacy 81.3 ml/min; Globulin 2.6 gm/dl (2.5-4.0); Glucose 83 mg/dl (70-99(Fasting)); Potassium 3.9 mmol/L (3.5-5.1); Sodium 142 mmol/L (136-145); Total Protein 7.7 gm/dl (6.0-8.3)
[2025-02-19] MEDS: DICYCLOMINE HCL 10 MG CAP PO ONE ×2 (12:41→15:21)
[2025-02-19] MEDS: SODIUM CHLORIDE 0.9% 1,000 ML IV ONE (12:42)
--- NOTE | 2025-02-19 12:49 | Emergency Department Note ---
Impression & Plan Abdominal pain, Chest pain, Diarrhea, Colitis ED Provider Note ED Provider Note NAME: FREIDA TAYLOR AGE:19 SEX: Non-Binary : 2005 ARRIVES VIA: Private vehicle INFORMANT: Patient ED PROVIDER(s): Nuha Esposito DO CHIEF COMPLAINT: Chest/abdominal pain, diarrhea HPI: This is a 19-year-old patient who presents emergency department due to concern for right lower chest/right upper quadrant pain and accompanying diarrhea. Patient states pain began several days ago and they were seen and evaluated here. They were diagnosed with a kidney infection and started on cephalexin. They have been taking Tylenol and ibuprofen at home for pain without any improvement, and have had continued diarrhea and nausea, no vomiting. No fevers or chills. No prior history of kidney problems. They thought originally they had pancreatitis as they have had this previously. They do have a history of GERD as well and do take pantoprazole and famotidine daily. No recent change in diet. No recent travel. No known sick contacts. No black or bloody stools. PAST MEDICAL HISTORY:See Below PAST SURGICAL HISTORY:See Below FAMILY HISTORY:See Below SOCIAL HISTORY:See Below HOME MEDICATIONS:See Below ALLERGIES:See Below VITALS:See Below PHYSICAL EXAMINATION: GENERAL: alert, well appearing, well nourished, no distress, non-toxic EYE EXAM: normal conjunctiva, PERRL and EOM's grossly intact OROPHARYNX: no exudate, no erythema, lips, buccal mucosa, and tongue normal and mucous membranes are moist NECK: supple, no nuchal rigidity, no adenopathy, non-tender LUNGS: Clear to auscultation. Normal chest wall mechanics, no w/r/r HEART: no murmurs, S1 normal and S2 normal, mild discomfort with palpation along the right inferior ribs ABDOMEN: abdomen soft, right upper quadrant/right costal margin pain with palpation normo-active bowel sounds, no masses, no rebound or guarding. Dull to percussion. BACK: Back is symmetrical on inspection and there is no deformity, no midline tenderness, no CVA tenderness. SKIN: no rashes, petechiae, orbruising UPPER EXTREMITIES: upper extremities are grossly normal. FROM, nml pulses b/l. LOWER EXTREMITIES: No pitting edema. FROM, nml pulses b/l. NEURO EXAM: Normal sensorium, cranial nerves II-XII grossly intact, normal speech, no facial droop,nogross weakness of arms, no gross weakness of legs. Gross sensation intact. No ataxia. Vital Signs: reviewed and remarkable Differential Diagnosis: Colitis, enteritis, bowel obstruction, perforation, GI bleed, duodenitis, gastritis, viral syndrome, dehydration, medication ADR, as well as others were considered MEDICAL DECISION MAKING: This is a 19-year-old who presents emergency department due to concern for right inferior chest/right upper quadrant pain and diarrhea. Patient recently treated for urinary tract infection after evaluation here with labs, urinalysis, and CT imaging. I did review the prior evaluation 3 days ago. Patient was afebrile and hemodynamically stable on arrival. Labs drawn and sent, IV established, EKG performed at bedside interpreted by me and patient monitored in telemetry. Urine collected and sent additionally as well. Urine today reassuring. Prior review of urine culture suggestive of contamination's and unlikely to be formal infection. I did review prior CT imaging which did show evidence of colitis in the ascending and transverse colon which seems to correlate with the area of his pain. Patient given IV fluids, IV Tylenol, IV Protonix, IV Toradol, oral Bentyl, and IV morphine. Patient continued to complain of persistent pain however did fall asleep. He had no recurrent diarrhea while present in the emergency department despite reporting diarrhea over the last few days. We discussed possible etiology of his colitis. We discussed potential ADRs of the cephalexin he was started on. Given age and recent CT imaging, with reassuring labs and urine here, we opted to defer repeat CTs at this time. Chest x-ray was added given location and was reassuring. Patient monitored over several hours and had no other new or evolving symptoms. He tolerated p.o. without bedside without difficulty and had no nausea or vomiting. He was afebrile without. Patient with persistent concern regarding his pain and underlying etiology. After discussion at bedside, hospitalist consulted for further evaluation. Consultation(s): 1930: Discussed with Dr. Serrato. ER Treatment Provided: See below Diagnostics Interpreted By Me: -ECG: Sinus bradycardia at 56, normal axis, normal intervals, no acute ST/T wave changes -Cardiac Monitoring: An order was placed for continuous cardiac monitoring. The monitor shows a rate of 59 with sinus bradycardia rhythm. -Laboratory studies: As stated above and show below. -Imaging studies: X-ray Chest: A single view study of the chest was reviewed and was negative for cardiomegaly, focal infiltrate, effusion, pulmonary edema, or wide mediastinum. Triage Nursing Note Reviewed Prior/Outside Records Reviewed -review of recent urine culture, contaminated Past Med/Surg History Problem List (Updated 02/19/25 @ 17:49 by Nuha Esposito, DO) Colitis (Acute) Diarrhea (Acute) Chest pain (Acute) Abdominal pain (Acute) Urinary tract infection (Acute) Abdominal pain (Acute) Fibromyalgia [id number] transgender person GERD (gastroesophageal reflux disease) Depression with anxiety PTSD (post-traumatic stress disorder) Nausea Pancreatitis (Acute) Abdominal pain Medical History Acute pancreatitis Surgical History No significant past surgical history Social History Smoking Status: Never smoker Tobacco Type: E-cigarettes / Vaping Hx Alcohol Use: No Hx Substance Use: Yes Last Used Substance: Days (ago) Preferred Language: Mosotho Communication Ability: Effective 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 Other Information That Helps Us Care for You: No Feels Safe at Home: Yes Safety Concerns: Feels Safe At This Time Gender Identity: Transgender Male Assistive Devices: Cane and Walker Allergies Allergies Allergy/AdvReac Type Severity Reaction Status Date / Time amoxicillin Allergy Hives Verified 02/16/25 22:40 Home Meds Home Medications Medication Instructions Recorded Confirmed paroxetine HCl 10 mg tablet 10 mg PO QAM 01/15/24 02/19/25 paroxetine HCl 40 mg tablet 40 mg PO QAM 01/15/24 02/19/25 aripiprazole 10 mg tablet 10 mg PO QAM 01/29/25 02/19/25 gabapentin 600 mg tablet 600 mg PO TID 01/29/25 02/19/25 pantoprazole 40 mg tablet,delayed 40 mg PO QAM 01/29/25 02/19/25 release trazodone 100 mg tablet 100 mg PO HS 01/29/25 02/19/25 cholecalciferol (vitamin D3) 50 50 mcg PO DAILY 02/16/25 02/19/25 mcg (2,000 unit) capsule (Vitamin D3) famotidine 20 mg tablet 20 mg PO HS 02/16/25 02/19/25 prazosin 2 mg capsule 2 mg PO HS 02/16/25 02/19/25 testosterone cypionate 200 mg/mL 25 mg IM UD 02/16/25 02/19/25 intramuscular oil Previous Rx's Medication Instructions Recorded ondansetron 4 mg disintegrating 4 mg PO Q6H PRN nausea and 01/27/25 tablet vomiting #20 tabs cephalexin 500 mg capsule 500 mg PO Q6H 7 days #28 caps 02/17/25 ondansetron 4 mg disintegrating 4 mg PO Q8H PRN nausea and 02/17/25 tablet vomiting 5 days #15 tabs Results & Data (ED) Vital Signs Vital Signs - 24 hr 02/19/25 20:00 Blood Pressure 111/72 Blood Pressure Mean 89 Laboratory Data 02/20/25 06:47 02/20/25 06:47 Lab Results 02/19/25 02/19/25 02/19/25 Range/Units 10:58 11:02 11:02 WBC 7.09 (4.8-10.8) K/ul RBC 4.84 (4.20-5.40) M/uL Hgb 15.1 (12.0-16.0) g/dl Hct 43.5 (37.0-47.0) % MCV 89.9 (80.0-100.0) fL MCH 31.2 (25.0-34.0) pg MCHC 34.7 (32.0-36.0) g/dL RDW Std Deviation 39.3 (36.4-46.3) fL RDW Coeff of Mauri 11.9 (11.5-14.5) % Plt Count 316 (130-400) K/uL MPV 9.7 (9.4-12.4) fL Immature Gran % (Auto) 0.1 % Neut % (Auto) 63.4 % Lymph % (Auto) 24.0 % [place] % (Auto) 9.9 % Eos % (Auto) 2.0 % Baso % (Auto) 0.6 % Neut # (Auto) 4.50 (1.40-6.50) K/uL Lymph # (Auto) 1.70 (1.20-3.40) K/uL [place] # (Auto) 0.70 H (0.11-0.59) K/uL Eos # (Auto) 0.14 (0.00-0.50) K/uL Baso # (Auto) 0.04 (0.00-0.20) K/uL Immature Gran # (Auto) 0.01 (0.01-0.20) K/uL D-Dimer 220 (0-500) ug/L FEU Sodium 142 (136-145) mmol/L Potassium 3.9 (3.5-5.1) mmol/L Chloride 107 (98-107) mmol/L Carbon Dioxide 28 (21-32) mmol/L Anion Gap 7 (3-11) BUN 16 (6-23) mg/dl Creatinine 1.13 (0.6-1.2) mg/dl Est Cr Clr Drug Dosing 81.3 ml/min eGFR 70.99 BUN/Creatinine Ratio 14.2 (10-20) Glucose 83 (70-99(Fasting)) mg/dl Calcium 9.6 (8.6-10.3) mg/dl Total Bilirubin 1.3 H (0.2-1.0) mg/dl AST 34 (13-39) U/L ALT 48 (7-52) U/L Alkaline Phosphatase 85 (34-104) U/L Troponin I High Sens < 2.3 Cancelled (0-14) pg/ml Total Protein 7.7 (6.0-8.3) gm/dl Albumin 5.1 H (3.4-5.0) gm/dl Globulin 2.6 (2.5-4.0) gm/dl Albumin/Globulin Ratio 2.0 (0.9-2) Urine Color Yellow Urine Appearance Turbid A (Clear) Urine pH 8.0 H (4.5-7.5) Ur Specific [place] 1.027 (1.000-1.030) Urine Protein Negative (Negative) Urine Glucose (UA) Negative (Negative) Urine Ketones Trace H (Negative) Urine Blood Negative (Negative) Urine Nitrite Negative (Negative) Urine Bilirubin Negative (Negative) Urine Urobilinogen Negative (Negative) Ur Leukocyte Esterase Negative (Negative) Urine WBC (Auto) 0-5 (0-5) /hpf Urine RBC (Auto) 0-2 (0-2) /hpf U Hyaline Cast (Auto) 0-2 (0-2) /lpf U Epithel Cells (Auto) 0-2 (0-2) /hpf Urine Bacteria (Auto) None Seen (None Seen) Administered Medications Aripiprazole (Aripiprazole 10 Mg Tab) 10 mg PO QAM ALESSIO Stop: 03/22/25 08:59 Last Admin: 02/20/25 08:26 Dose: 10 mg Documented By: TANO Cephalexin HCl (Cephalexin 500 Mg Cap) 500 mg PO Q6 [facility]; Protocol Stop: 02/25/25 00:00 Last Admin: 02/20/25 17:33 Dose: 500 mg Documented By: Admin: 02/20/25 12:13 Dose: 500 mg Documented By: Admin: 02/20/25 05:17 Dose: 500 mg Documented By: Admin: 02/19/25 23:34 Dose: 500 mg Documented By: RAJEEV Dicyclomine HCl (Dicyclomine Hcl 10 Mg Cap) 10 mg PO QID [facility] Stop: 03/22/25 10:29 Last Admin: 02/20/25 17:33 Dose: 10 mg Documented By: Admin: 02/20/25 13:31 Dose: 10 mg Documented By: Admin: 02/20/25 10:44 Dose: 10 mg Documented By: TANO Famotidine (Famotidine 20 Mg Tab) 20 mg PO HS [facility] Stop: 03/21/25 22:21 Last Admin: 02/19/25 23:36 Dose: 20 mg Documented By: RAJEEV Gabapentin (Gabapentin 600 Mg Tab) 600 mg PO TID ALESSIO Stop: 03/21/25 22:21 Last Admin: 02/20/25 13:31 Dose: 600 mg Documented By: Admin: 02/20/25 08:26 Dose: 600 mg Documented By: Admin: 02/19/25 23:35 Dose: 600 mg Documented By: RAJEEV Lactated Ringer's (Lr) 1,000 mls @ 100 mls/hr IV .Q10H ALESSIO Stop: 02/22/25 22:21 Last Admin: 02/20/25 18:46 Dose: 100 mls/hr Documented By: Infusion: 02/20/25 18:28 Dose: Infused Documented By: Admin: 02/20/25 08:28 Dose: 100 mls/hr Documented By: Infusion: 02/20/25 08:28 Dose: Infused Documented By: Admin: 02/19/25 23:34 Dose: 100 mls/hr Documented By: RAJEEV Acetaminophen (Ofirmev) 1,000 mg in 100 mls @ 400 mls/hr IV Q8H PRN PRN Reason: Pain or Fever Stop: 02/22/25 22:21 Last Infusion: 02/20/25 07:20 Dose: Infused Documented By: Admin: 02/20/25 07:04 Dose: 400 mls/hr Documented By: IRENE Ketorolac Tromethamine (Ketorolac Tromethamine 15 Mg/Ml Vial) 15 mg IV Q6H PRN PRN Reason: Mod-Sev Pain (Scale 4-10) Stop: 02/24/25 22:21 Last Admin: 02/20/25 16:30 Dose: 15 mg Documented By: Admin: 02/20/25 05:20 Dose: 15 mg Documented By: RAJEEV Pantoprazole Sodium (Pantoprazole 40 Mg Tab) 40 mg PO QAM [facility] Stop: 03/22/25 08:59 Last Admin: 02/20/25 08:27 Dose: 40 mg Documented By: TANO Paroxetine HCl (Paroxetine Hcl 10 Mg Tab) 10 mg PO QAM [facility] Stop: 03/22/25 08:59 Last Admin: 02/20/25 08:27 Dose: 10 mg Documented By: TANO Paroxetine HCl (Paroxetine Hcl 20 Mg Tab) [facility] [place] Stop: 03/22/25 08:59 Last Admin: 02/20/25 08:27 Dose: 40 mg Documented By: TANO Prazosin HCl (Prazosin Hcl 1 Mg Cap) 2 mg PO [facility] Stop: 03/21/25 22:21 Last Admin: 02/19/25 23:35 Dose: 2 mg Documented By: RAJEEV Trazodone HCl (Trazodone Hcl 100 Mg Tab) 100 mg PO HS [facility] Stop: 03/21/25 22:21 Last Admin: 02/19/25 23:35 Dose: 100 mg Documented By: RAJEEV Vitamin D (Cholecalciferol 25 Mcg (1000 Units) Tab) 50 mcg PO DAILY ALESSIO Stop: 03/22/25 08:59 Last Admin: 02/20/25 08:26 Dose: 50 mcg Documented By: AV Discontinued Medications Dicyclomine HCl (Dicyclomine Hcl 10 Mg Cap) 10 mg PO NOW ONE Stop: 02/19/25 12:35 Last Admin: 02/19/25 12:41 Dose: 10 mg Documented By: CC Dicyclomine HCl (Dicyclomine Hcl 10 Mg Cap) 10 mg PO NOW ONE Stop: 02/19/25 14:52 Last Admin: 02/19/25 15:21 Dose: 10 mg Documented By: HAIDER Sodium Chloride (Nss) 1,000 mls @ 999 mls/hr IV .Q1H1M ONE Stop: 02/19/25 13:34 Last Infusion: 02/19/25 13:52 Dose: Infused Documented By: Admin: 02/19/25 12:42 Dose: 999 mls/hr Documented By: WILDER Acetaminophen (Ofirmev) 1,000 mg in 100 mls @ 400 mls/hr IV NOW STA Stop: 02/19/25 14:14 Last Infusion: 02/19/25 14:47 Dose: Infused Documented By: Admin: 02/19/25 14:19 Dose: 400 mls/hr Documented By: CC Pantoprazole Sodium (Protonix) 40 mg in 10 mls @ 5 mls/min IV NOW ONE Stop: 02/19/25 14:52 Last Admin: 02/19/25 15:21 Dose: 5 mls/min Documented By: HAIDER Ketorolac Tromethamine (Ketorolac Tromethamine 15 Mg/Ml Vial) 10 mg IV NOW ONE Stop: 02/19/25 14:52 Last Admin: 02/19/25 15:21 Dose: 10 mg Documented By: HAIDER Lidocaine (Lidocaine 5% 1 Patch) 1 patch TD NOW STA Stop: 02/19/25 19:00 Last Admin: 02/19/25 19:35 Dose: 1 patch Documented By: HAIDER Miscellaneous (Remove Lidoderm Patch) 1 each N/A DAILY@2100 ALESSIO Stop: 03/21/25 20:59 Last Admin: 02/19/25 20:14 Dose: Not Given Documented By: HAIDER Morphine Sulfate (Morphine Sulfate 2 Mg/Ml Carp) 2 mg IV NOW STA Stop: 02/19/25 14:01 Last Admin: 02/19/25 14:18 Dose: 2 mg Documented By: WILDER Morphine Sulfate (Morphine Sulfate 4 Mg/Ml 1 Ml Carp\Vial) 4 mg IV NOW STA Stop: 02/19/25 16:32 Last Admin: 02/19/25 16:58 Dose: 4 mg Documented By: GAMAL Sucralfate (Sucralfate 1 Gm/10 Ml Udc) 1 gm PO NOW STA Stop: 02/19/25 15:48 Last Admin: 02/19/25 15:59 Dose: 1 gm Documented By: HAIDER Discharge Plan Visit Data Chief Complaint: Chest Pain Stated Complaint: CHEST PAIN, NAUSEA, WAS HALLUCINATING EARLIER ED Provider: Nuha Esposito Discharge Problem: Abdominal pain, Chest pain, Diarrhea, Colitis Patient Disposition: Admitted As Inpatient Condition: Good Discharge Instructions Interventions: ED Discharge Assessment Last Done: 02/19/25 21:51
[2025-02-19 13:19] LABS: D Dimer 220 ug/L FEU (0-500)
[2025-02-19 13:32] LABS: Troponin I High Sensitivity < 2.3 pg/ml (0-14)
[2025-02-19] MEDS: MoRPHine SULFATE 2 MG/ML CARP IV STA (14:18)
[2025-02-19] MEDS: ACETAMINOPHEN 1,000 MG/100 ML VIAL IV STA (14:19)
[2025-02-19] MEDS: KETOROLAC TROMETHAMINE 15 MG/ML VIAL IV ONE (15:21)
[2025-02-19] MEDS: PANTOprazole 40 MG/10 ML SYR IV ONE (15:21)
[2025-02-19] MEDS: SUCRALFATE 1 GM/10 ML UDC PO STA (15:59)
[2025-02-19] MEDS: MoRPHine SULFATE 4 MG/ML 1 ML CARP\\VIAL IV STA (16:58)
[2025-02-19] MEDS: LIDOCAINE 5% 1 PATCH TD STA (19:35)
--- NOTE | 2025-02-19 20:23 | XRay Report ---
EXAM: XR chest 1V portable CLINICAL HISTORY: right inf chest pain TECHNIQUE: An X-ray image of the chest is obtained in AP projection. COMPARISON: Correlated to the prior chest CT dated 11/23/2024. FINDINGS: Pulmonary Parenchyma: Lungs are clear bilaterally. No evidence of consolidation, collapse, or focal opacities. No pulmonary nodules are identified. No evidence of pleural effusion or pleural thickening. Heart and Mediastinum: Heart size and shape are normal. No mediastinal widening or masses. No hilar or mediastinal lymphadenopathy. Bony Thorax: Bony thorax appears intact without fractures or deformities. Soft Tissues: Soft tissues overlying the chest wall are unremarkable. IMPRESSION: 1. Normal chest X-ray. (unchanged) 2. No acute cardiopulmonary abnormalities are identified. Electronically signed by Bayron Halney 02-19-2025 8:23 PM
[2025-02-19] MEDS ORDERED: ONDANSETRON INJ 2 MG/ML 2 ML VIAL IV PRN (22:22)
[2025-02-19] MEDS: cephALEXin 500 MG CAP PO SCH (23:34)
[2025-02-19] MEDS: LACTATED RINGER'S 1,000 ML IV SCH (23:34)
[2025-02-19] MEDS: GABAPENTIN 600 MG TAB PO SCH (23:35)
[2025-02-19] MEDS: PRAZOSIN HCL 1 MG CAP PO SCH (23:35)
[2025-02-19] MEDS: traZODone HCL 100 MG TAB PO SCH (23:35)
[2025-02-19] MEDS: FAMOTIDINE 20 MG TAB PO SCH (23:36)
[2025-02-20] MEDS: KETOROLAC TROMETHAMINE 15 MG/ML VIAL IV PRN (05:20)
--- NOTE | 2025-02-20 05:50 | History & Physical Report ---
Date of Service February 19, 2025 Assessment & Plan (1) Abdominal pain: Plan: 19-year-old female to male with past medical history significant for PTSD, depression, anxiety, GERD, history of pancreatitis, history of fibromyalgia comes with right-sided abdominal and chest pain. Pain is going on for some time pain. Patient was in the ER on 02/16/2025 with similar pain and found to UTI and discharged on Keflex. But the pain is not getting better. Any movement or ta amanda deep breath the pain is worse. Denies any fevers. No shortness of breath. No cough. Has Some nausea. Had some visualizations earlier but that is all resolved. Currently resting comfortably and hemodynamically stable. Right-sided chest/abdominal pain EKG and troponin negative D-dimer negative LFTs okay Chest x-ray okay. No leukocytosis. UA is okay Will follow repeat labs and lipase levels Full liquid diet for now, fluids and pain control Observe in the hospital Recent UTI Will continue home Keflex UA is unremarkable today Depression with anxiety, PTSD, fibromyalgia Continue home medications GERD Continue Protonix and Pepcid DVT prophylaxis SCDs Disposition Observation medical floor Full code History of Present Illness Chief Complaint: Right-sided chest/abdominal pain Primary Care Provider: Yazmin Matthews MD 19-year-old female to male with past medical history significant for PTSD, depression, anxiety, GERD, history of pancreatitis, history of fibromyalgia comes with right-sided abdominal and chest pain. Pain is going on for some time pain. Patient was in the ER on 02/16/2025 with similar pain and found to UTI and discharged on Keflex. But the pain is not getting better. Any movement or taking deep breath the pain is worse. Denies any fevers. No shortness of breath. No cough. Has Some nausea. Had some visualizations earlier but that is all resolved. Currently resting comfortably and hemodynamically stable. Past medical history. As mentioned above. Past surgical history. EGD. EGD with endoscopic ultrasound. Partial removal/revision of hymen. Social history. Smoke cigarettes. Alcohol couple of times a month. Smokes marijuana. Family history. Mother had mental disorder. Anxiety. Hypothyroidism. Father had ulcerative colitis. Paternal grandfather had diabetes. Maternal grandfather had hypertension. Allergies Allergy/AdvReac Type Severity Reaction Status Date / Time amoxicillin Allergy Hives Verified 02/16/25 22:40 Home Medications Medication Instructions Recorded Confirmed Type paroxetine HCl 10 mg tablet 10 mg PO QAM 01/15/24 02/19/25 History paroxetine HCl 40 mg tablet 40 mg PO QAM 01/15/24 02/19/25 History ondansetron 4 mg disintegrating 4 mg PO Q6H PRN nausea and 01/27/25 02/19/25 Rx tablet vomiting #20 tabs aripiprazole 10 mg tablet 10 mg PO QAM 01/29/25 02/19/25 History gabapentin 600 mg tablet 600 mg PO TID 01/29/25 02/19/25 History pantoprazole 40 mg tablet,delayed 40 mg PO QAM 01/29/25 02/19/25 History release trazodone 100 mg tablet 100 mg PO HS 01/29/25 02/19/25 History cholecalciferol (vitamin D3) 50 50 mcg PO DAILY 02/16/25 02/19/25 History mcg (2,000 unit) capsule (Vitamin D3) famotidine 20 mg tablet 20 mg PO HS 02/16/25 02/19/25 History prazosin 2 mg capsule 2 mg PO HS 02/16/25 02/19/25 History testosterone cypionate 200 mg/mL 25 mg IM UD 02/16/25 02/19/25 History intramuscular oil cephalexin 500 mg capsule 500 mg PO Q6H 7 days #28 caps 02/17/25 02/19/25 Rx ondansetron 4 mg disintegrating 4 mg PO Q8H PRN nausea and 02/17/25 02/19/25 Rx tablet vomiting 5 days #15 tabs Past Med/Surg History Problem List (Updated 02/19/25 @ 17:49 by Nuha Esposito DO) Colitis (Acute) Diarrhea (Acute) Chest pain (Acute) Abdominal pain (Acute) Urinary tract infection (Acute) Abdominal pain (Acute) Fibromyalgia [id number] transgender person GERD (gastroesophageal reflux disease) Depression with anxiety PTSD (post-traumatic stress disorder) Nausea Pancreatitis (Acute) Abdominal pain Medical History Acute pancreatitis Surgical History No significant past surgical history Social History Smoking Status: Never smoker Tobacco Type: E-cigarettes / Vaping Hx Alcohol Use: No Hx Substance Use: Yes Last Used Substance: Days (ago) Preferred Language: Uzbek Communication Ability: Effective Varnish Melter Required: No Beliefs That Will Affect Care: None Current Living Situation: Family Current Living Situation Comment: Lives with boyfriend in an apartment. Other Information That Helps Us Care for You: No Feels Safe at Home: Yes Safety Concerns: Feels Safe At This Time Gender Identity: Transgender Male Assistive Devices: None Review of Systems Review of Systems: All systems reviewed & are unremarkable except as noted in HPI & below Physical Exam Physical Exam: General- Not in distress Head- atraumatic Eyes- PERRL. ENT- oropharynx clear Neck- supple, no JVD. Lungs- clear to auscultation no wheezing or crackles. Heart- regular rhythm; no murmur, no gallop. Abdomen- normal bowel sounds, soft, tenderness in ruq. No distension Extremities- no pretibial edema, no erythema seen Neuro- alert, oriented PERRL, no facial palsy; no dysarthria; moves extremities Results & Data Results & Data Vital Signs (Past 12 Hours) Vital Signs Temp Pulse Pulse Resp BP BP Pulse Ox 02/19/25 17:38 54 L 02/19/25 17:00 53 L 20 130/93 96 02/19/25 16:00 63 20 128/83 97 02/19/25 15:30 57 L 18 120/74 97 02/19/25 15:00 60 19 118/77 97 02/19/25 14:17 69 18 124/73 96 02/19/25 12:06 58 L 18 121/83 99 02/19/25 12:05 73 02/19/25 10:49 36.2 C L 62 20 120/74 97 O2 Del Method 02/19/25 17:38 02/19/25 17:00 Room Air 02/19/25 16:00 Room Air 02/19/25 15:30 Room Air 02/19/25 15:00 Room Air 02/19/25 14:17 Room Air 02/19/25 12:06 Room Air 02/19/25 12:05 02/19/25 10:49 Room Air Diagnostic Findings Laboratory Results WBC 7.09 K/ul (4.8-10.8) 02/19/25 11:02 RBC 4.84 M/uL (4.20-5.40) 02/19/25 11:02 Hgb 15.1 g/dl (12.0-16.0) 02/19/25 11:02 Hct 43.5 % (37.0-47.0) 02/19/25 11:02 MCV 89.9 fL (80.0-100.0) 02/19/25 11:02 MCH 31.2 pg (25.0-34.0) 02/19/25 11:02 MCHC 34.7 g/dL (32.0-36.0) 02/19/25 11:02 RDW Std Deviation 39.3 fL (36.4-46.3) 02/19/25 11:02 RDW Coeff of Mauri 11.9 % (11.5-14.5) 02/19/25 11:02 Plt Count 316 K/uL (130-400) 02/19/25 11:02 MPV 9.7 fL (9.4-12.4) 02/19/25 11:02 Immature Gran % (Auto) 0.1 % 02/19/25 11:02 Neut % (Auto) 63.4 % 02/19/25 11:02 Lymph % (Auto) 24.0 % 02/19/25 11:02 [place] % (Auto) 9.9 % 02/19/25 11:02 Eos % (Auto) 2.0 % 02/19/25 11:02 Baso % (Auto) 0.6 % 02/19/25 11:02 Neut # (Auto) 4.50 K/uL (1.40-6.50) 02/19/25 11:02 Lymph # (Auto) 1.70 K/uL (1.20-3.40) 02/19/25 11:02 [place] # (Auto) 0.70 K/uL (0.11-0.59) H 02/19/25 11:02 Eos # (Auto) 0.14 K/uL (0.00-0.50) 02/19/25 11:02 Baso # (Auto) 0.04 K/uL (0.00-0.20) 02/19/25 11:02 Immature Gran # (Auto) 0.01 K/uL (0.01-0.20) 02/19/25 11:02 D-Dimer 220 ug/L FEU (0-500) 02/19/25 11:02 Sodium 142 mmol/L (136-145) 02/19/25 11:02 Potassium 3.9 mmol/L (3.5-5.1) 02/19/25 11:02 Chloride 107 mmol/L (98-107) 02/19/25 11:02 Carbon Dioxide 28 mmol/L (21-32) 02/19/25 11:02 Anion Gap 7 (3-11) 02/19/25 11:02 BUN 16 mg/dl (6-23) 02/19/25 11:02 Creatinine 1.13 mg/dl (0.6-1.2) 02/19/25 11:02 Est Cr Clr Drug Dosing 81.3 ml/min 02/19/25 11:02 eGFR 70.99 02/19/25 11:02 BUN/Creatinine Ratio 14.2 (10-20) 02/19/25 11:02 Glucose 83 mg/dl (70-99(Fasting)) 02/19/25 11:02 Calcium 9.6 mg/dl (8.6-10.3) 02/19/25 11:02 Total Bilirubin 1.3 mg/dl (0.2-1.0) H 02/19/25 11:02 AST 34 U/L (13-39) 02/19/25 11:02 ALT 48 U/L (7-52) 02/19/25 11:02 Alkaline Phosphatase 85 U/L (34-104) 02/19/25 11:02 Troponin I High Sens < 2.3 pg/ml (0-14) 02/19/25 11:02 Troponin I High Sens Cancelled 02/19/25 11:02 Total Protein 7.7 gm/dl (6.0-8.3) 02/19/25 11:02 Albumin 5.1 gm/dl (3.4-5.0) H 02/19/25 11:02 Globulin 2.6 gm/dl (2.5-4.0) 02/19/25 11:02 Albumin/Globulin Ratio 2.0 (0.9-2) 02/19/25 11:02 Urine Color Yellow 02/19/25 10:58 Urine Appearance Turbid (Clear) A 02/19/25 10:58 Urine pH 8.0 (4.5-7.5) H 02/19/25 10:58 Ur Specific Saline 1.027 (1.000-1.030) 02/19/25 10:58 Urine Protein Negative (Negative) 02/19/25 10:58 Urine Glucose (UA) Negative (Negative) 02/19/25 10:58 Urine Ketones Trace (Negative) H 02/19/25 10:58 Urine Blood Negative (Negative) 02/19/25 10:58 Urine Nitrite Negative (Negative) 02/19/25 10:58 Urine Bilirubin Negative (Negative) 02/19/25 10:58 Urine Urobilinogen Negative (Negative) 02/19/25 10:58 Ur Leukocyte Esterase Negative (Negative) 02/19/25 10:58 Urine WBC (Auto) 0-5 /hpf (0-5) 02/19/25 10:58 Urine RBC (Auto) 0-2 /hpf (0-2) 02/19/25 10:58 U Hyaline Cast (Auto) 0-2 /lpf (0-2) 02/19/25 10:58 U Epithel Cells (Auto) 0-2 /hpf (0-2) 02/19/25 10:58 Urine Bacteria (Auto) None Seen (None Seen) 02/19/25 10:58 Impressions Chest X-Ray 02/19/25 18:29 EXAM: XR chest 1V portable CLINICAL HISTORY: right inf chest pain TECHNIQUE: An X-ray image of the chest is obtained in AP projection. COMPARISON: Correlated to the prior chest CT dated 11/23/2024. FINDINGS: Pulmonary Parenchyma: Lungs are clear bilaterally. No evidence of consolidation, collapse, or focal opacities. No pulmonary nodules are identified. No evidence of pleural effusion or pleural thickening. Heart and Mediastinum: Heart size and shape are normal. No mediastinal widening or masses. No hilar or mediastinal lymphadenopathy. Bony Thorax: Bony thorax appears intact without fractures or deformities. Soft Tissues: Soft tissues overlying the chest wall are unremarkable. IMPRESSION: 1. Normal chest X-ray. (unchanged) 2. No acute cardiopulmonary abnormalities are identified. Electronically signed by Bayron Hanley 02-19-2025 8:23 PM ECG Additional Comments: ECG. Sinus bradycardia with sinus arrhythmia rate of 56. No acute ST changes seen. Code Status & VTE Plan VTE Prophylaxis Plan VTE Prophylaxis will be ordered: Yes
[2025-02-20] MEDS: ACETAMINOPHEN 1,000 MG/100 ML VIAL IV PRN (07:04)
[2025-02-20 07:19] LABS: Basophils # (auto) 0.03 K/uL (0.00-0.20); Basophils % (auto) 0.6 %; Eosinophils # (auto) 0.22 K/uL (0.00-0.50); Eosinophils % (auto) 4.4 %; Hematocrit (blood only) 44.7 % (37.0-47.0); Hemoglobin 15.5 g/dl (12.0-16.0); Immature Granulocytes # (auto) 0.01 K/uL (0.01-0.20); Immature Granulocytes % (auto) 0.2 %; Lymphocytes # (auto) 2.16 K/uL (1.20-3.40); Lymphocytes % (auto) 43.2 %; Mean Corpuscular Hemoglobin 31.8 pg (25.0-34.0); Mean Corpuscular Hgb Conc 34.7 g/dL (32.0-36.0); Mean Corpuscular Volume 91.6 fL (80.0-100.0); Mean Platelet Volume 9.7 fL (9.4-12.4); Monocytes # (auto) 0.53 K/uL (0.11-0.59); Monocytes % (auto) 10.6 %; Neutrophils # (auto) 2.05 K/uL (1.40-6.50); Platelet Count 261 K/uL (130-400); RDW Standard Deviation 40.5 fL (36.4-46.3); Red Blood Count 4.88 M/uL (4.20-5.40)
[2025-02-20 07:38] LABS: Albumin Level 4.4 gm/dl (3.4-5.0); BUN Creatinine Ratio 18.2 (10-20); Bilirubin Direct 0.2 mg/dl (0-0.2); Bilirubin,Total 1.3 mg/dl (0.2-1.0); Calcium 8.9 mg/dl (8.6-10.3); Creatinine Clr Calc Pharmacy 119.4 ml/min; Potassium 4.3 mmol/L (3.5-5.1); Total Protein 6.7 gm/dl (6.0-8.3)
[2025-02-20] MEDS: CHOLECALCIFEROL 25 MCG (1000 UNITS) TAB PO SCH (08:26)
[2025-02-20] MEDS: ARIPiprazole 10 MG TAB PO SCH (08:26)
[2025-02-20] MEDS: PARoxetine HCL 10 MG TAB PO SCH (08:27)
[2025-02-20] MEDS: PARoxetine HCL 20 MG TAB PO SCH (08:27)
[2025-02-20] MEDS: PANTOprazole 40 MG TAB PO SCH (08:27)
[2025-02-20] MEDS: DICYCLOMINE HCL 10 MG CAP PO SCH (10:44)
--- NOTE | 2025-02-20 11:15 | Hospitalist Progress Note ---
Date of Service February 20, 2025 Assessment & Plan (1) Abdominal pain: Plan: Mr Cabello is 19-year-old FTM, pronouns he/him, with past medical history significant for PTSD, depression, anxiety, GERD, history of pancreatitis, history of fibromyalgia comes with right-sided abdominal and chest pain. CT imaging reveals colitis/enterisis like changes. Patient was in the ER on 02/16/2025 with similar pain and found to UTI and discharged on Keflex. Today, patient reports discomfort noted with cough/deep breathing or any big movements. No bowel movement as of yet today. #Right upper quadrant pain #Possible gastroenteritis EKG and troponin negative D-dimer negative,LFTs okay with chronic t bili elevation, lipase wnl Chest x-ray okay. No leukocytosis. UA WNL Diet as tolerated Stool PCR start bentyl #Recent UTI Will continue home Keflex UA is unremarkable today #Depression with anxiety, PTSD, fibromyalgia Continue home medications #GERD Continue Protonix and Pepcid DVT prophylaxis SCDs Disposition Observation medical floor Full code Admission and Anticipated Discharge Date Admission Date: February 19, 2025 Subjective Reports ruq pain marked by pressure and occasional stabbing sensation endorses some nausea, no vomiting notes that initially he was constipated but then experienced diarrhea yesterday denies any hematochezia or melena Physical Exam Constitutional: WD/WN, vitals as above Respiratory: normal respiratory effort, lungs clear to auscultation Cardiovascular: RRR, no murmur, no edema Gastrointestinal (Abdomen): normal bowel sounds, soft, nontender, no hepatosplenomegaly reported pain not worsened with palpation Results & Data Results & Data Vital Signs (Past 12 Hours) Vital Signs Temp Pulse Resp BP Pulse Ox O2 Del Method 02/20/25 08:12 36.4 C L 65 18 97/60 L 97 Room Air Laboratory Results Short CBC 02/19/25 02/20/25 Range/Units 11:02 06:47 WBC 7.09 5.00 (4.8-10.8) K/ul Hgb 15.1 15.5 (12.0-16.0) g/dl Hct 43.5 44.7 (37.0-47.0) % Plt Count 316 261 (130-400) K/uL BMP 02/19/25 02/20/25 11:02 06:47 Sodium 142 141 Potassium 3.9 4.3 Chloride 107 108 H Carbon Dioxide 28 28 BUN 16 14 Creatinine 1.13 0.77 D Glucose 83 82 Calcium 9.6 8.9 Liver Function 02/19/25 02/20/25 Range/Units 11:02 06:47 Total Bilirubin 1.3 H 1.3 H (0.2-1.0) mg/dl Direct Bilirubin 0.2 (0-0.2) mg/dl AST 34 27 (13-39) U/L ALT 48 40 (7-52) U/L Alkaline Phosphatase 85 69 (34-104) U/L Albumin 5.1 H 4.4 (3.4-5.0) gm/dl Urine 02/19/25 Range/Units 10:58 Urine Color Yellow Urine Appearance Turbid A (Clear) Urine pH 8.0 H (4.5-7.5) Ur Specific [place] 1.027 (1.000-1.030) Urine Protein Negative (Negative) Urine Glucose (UA) Negative (Negative) Medications Administered Home Medications Medication Instructions Recorded Confirmed Last Taken paroxetine HCl 10 mg tablet 10 mg PO [facility] 01/15/24 02/19/25 01/14/24 paroxetine HCl 40 mg tablet 40 mg PO [facility] 01/15/24 02/19/25 01/14/24 ondansetron 4 mg disintegrating 4 mg PO Q6H PRN nausea and 01/27/25 02/19/25 Unknown tablet vomiting #20 tabs aripiprazole 10 mg tablet 10 mg PO [facility] 01/29/25 02/19/25 Unknown gabapentin 600 mg tablet 600 mg PO TID 01/29/25 02/19/25 Unknown pantoprazole 40 mg tablet,delayed 40 mg PO [facility] 01/29/25 02/19/25 Unknown release trazodone 100 mg tablet 100 mg PO 01/29/25 02/19/25 Unknown cholecalciferol (vitamin D3) 50 50 mcg PO DAILY 02/16/25 02/19/25 Unknown mcg (2,000 unit) capsule (Vitamin D3) famotidine 20 mg tablet 20 mg PO 02/16/25 02/19/25 Unknown prazosin 2 mg capsule 2 mg PO 02/16/25 02/19/25 Unknown testosterone cypionate 200 mg/mL 25 mg IM UD 02/16/25 02/19/25 Unknown intramuscular oil cephalexin 500 mg capsule 500 mg PO Q6H 7 days #28 caps 02/17/25 02/19/25 Unknown ondansetron 4 mg disintegrating 4 mg PO Q8H PRN nausea and 02/17/25 02/19/25 Unknown tablet vomiting 5 days #15 tabs Active Medications Generic Name Dose Route Start Last Admin Trade Name Freq PRN Reason Stop Dose Admin Aripiprazole 10 mg 02/20/25 09:00 02/20/25 08:26 Aripiprazole 10 Mg Tab PO 03/22/25 08:59 10 mg QAM ALESSIO Administration Cephalexin HCl 500 mg 02/20/25 00:00 02/20/25 05:17 Cephalexin 500 Mg Cap PO 02/25/25 00:00 500 mg Q6 ALESSIO Administration Protocol Dicyclomine HCl 10 mg 02/20/25 10:30 02/20/25 10:44 Dicyclomine Hcl 10 Mg Cap PO 03/22/25 10:29 10 mg QID ALESSIO Administration Famotidine 20 mg 02/19/25 22:22 02/19/25 23:36 Famotidine 20 Mg Tab PO 03/21/25 22:21 20 mg HS ALESSIO Administration Gabapentin 600 mg 02/19/25 22:22 02/20/25 08:26 Gabapentin 600 Mg Tab PO 03/21/25 22:21 600 mg TID ALESSIO Administration Lactated Ringer's 1,000 mls @ 100 mls/hr 02/19/25 22:22 02/20/25 08:28 Lr IV 02/22/25 22:21 100 mls/hr .Q10H ALESSIO Administration Acetaminophen 1,000 mg in 100 mls @ 400 mls/hr 02/19/25 22:22 02/20/25 07:20 Ofirmev IV 02/22/25 22:21 Infused Q8H PRN Infusion Pain or Fever Ketorolac Tromethamine 15 mg 02/19/25 22:22 02/20/25 05:20 Ketorolac Tromethamine 15 Mg/Ml Vial IV 02/24/25 22:21 15 mg Q6H PRN Administration Mod-Sev Pain (Scale 4-10) Pantoprazole Sodium 40 mg 02/20/25 09:00 02/20/25 08:27 Pantoprazole 40 Mg Tab PO 03/22/25 08:59 40 mg QAM ALESSIO Administration Paroxetine HCl 10 mg 02/20/25 09:00 02/20/25 08:27 Paroxetine Hcl 10 Mg Tab PO 03/22/25 08:59 10 mg QAM ALESSIO Administration Paroxetine HCl 40 mg 02/20/25 09:00 02/20/25 08:27 Paroxetine Hcl 20 Mg Tab PO 03/22/25 08:59 40 mg QAM ALESSIO Administration Prazosin HCl 2 mg 02/19/25 22:22 02/19/25 23:35 Prazosin Hcl 1 Mg Cap PO 03/21/25 22:21 2 mg HS ALESSIO Administration Trazodone HCl 100 mg 02/19/25 22:22 02/19/25 23:35 Trazodone Hcl 100 Mg Tab PO 03/21/25 22:21 100 mg HS ALESSIO Administration Vitamin D 50 mcg 02/20/25 09:00 02/20/25 08:26 Cholecalciferol 25 Mcg (1000 Units) Tab PO 03/22/25 08:59 50 mcg DAILY ALESSIO Administration
--- NOTE | 2025-02-20 19:45 | Ultrasound Report ---
Clinical history: Right upper quadrant pain Technique: Sonography was performed of the right upper quadrant of the abdomen Findings: There is mild fatty infiltration of the liver. No definite liver mass is seen There is no evidence of cholelithiasis or cholecystitis. The gallbladder has a normal wall thickness and no adjacent fluid is seen. No definite sonographic Cornejo sign was detected. There is no intrahepatic or extrahepatic bile duct dilatation. The common bile duct measures 3 mm The right kidney appears unremarkable. There is no hydronephrosis. No definite renal calculus or mass is seen The visualized pancreas, aorta, and IVC appear unremarkable. No ascites is seen Impression: 1. Mild fatty infiltration of the liver 2. Otherwise unremarkable right upper quadrant abdominal sonogram Electronically signed by Diogo Neal 02-20-2025 7:44 PM
[2025-02-20] MEDS: POLYETHYLENE (MIRALAX) 17 GM PACK PO STA (20:37)
[2025-02-20] MEDS: MoRPHine SULFATE 2 MG/ML CARP IV STA (20:37)
--- NOTE | 2025-02-20 21:28 | Electrocardiogram Report ---
Test Reason : Blood Pressure : */* mmHG Vent. Rate : 56 BPM Atrial Rate : 56 BPM P-R Int : 134 ms QRS Dur : 86 ms QT Int : 442 ms P-R-T Axes : 24 -21 17 degrees QTcB Int : 426 ms Sinus bradycardia with sinus arrhythmia Otherwise normal ECG When compared with ECG of 30-Jan-2025 18:30, No significant change Confirmed by Bruce Fajardo ([id number]) on 02/20/2025 9:27:36 PM Referred By: REFERRED SELF Confirmed By: Bruce Fajardo
[2025-02-21 06:35] LABS: Hematocrit (blood only) 39.8 % (37.0-47.0); Hemoglobin 14.1 g/dl (12.0-16.0); Mean Corpuscular Hgb Conc 35.4 g/dL (32.0-36.0); Mean Corpuscular Volume 90.2 fL (80.0-100.0); Mean Platelet Volume 9.7 fL (9.4-12.4); Platelet Count 260 K/uL (130-400); RDW Coefficient of Variation 11.9 % (11.5-14.5); RDW Standard Deviation 39.4 fL (36.4-46.3); Red Blood Count 4.41 M/uL (4.20-5.40); White Blood Count 5.59 K/ul (4.8-10.8)
[2025-02-21 06:52] LABS: BUN Creatinine Ratio 12.3 (10-20); Creatinine Clr Calc Pharmacy 113.5 ml/min; Magnesium 1.8 mg/dl (1.7-2.4); Phosphorus 3.7 mg/dl (2.5-4.9); Potassium 4.1 mmol/L (3.5-5.1)
--- NOTE | 2025-02-21 13:26 | Hospitalist Progress Note ---
Date of Service February 21, 2025 Assessment & Plan (1) Abdominal pain: Plan: Mr Cabello is 19-year-old FTM, pronouns he/him, with past medical history significant for PTSD, depression, anxiety, GERD, history of pancreatitis, history of fibromyalgia comes with right-sided abdominal and chest pain. CT imaging reveals colitis/enterisis like changes. Patient was in the ER on 02/16/2025 with similar pain and found to UTI and discharged on Keflex. Today, patient reports continued discomfort noted with cough/deep breathing or any big movements. No bowel movement. Reports family hx of UC and is concerned with report of colitis on CT denies hematochezia/diarrhea or other symptoms at this time #Right upper quadrant pain #Possible gastroenteritis EKG and troponin negative D-dimer negative,LFTs okay with chronic t bili elevation, lipase wnl Chest x-ray okay. No leukocytosis. UA WNL Diet as tolerated Stool PCR ordered discontinue bentyl start miralax and docusate GI consult to assess if c scope warranted or further labs, also for patient reassurance #Recent UTI Will continue home Keflex UA is unremarkable today #Depression with anxiety, PTSD, fibromyalgia Continue home medications #GERD Continue Protonix and Pepcid DVT prophylaxis SCDs Disposition Observation medical floor Full code Admission and Anticipated Discharge Date Admission Date: February 19, 2025 Subjective reports continued pain and pressure including pain when bearing down for gas/bowel movement denies any episodes of diarrhea denies vomiting but notes intermittent nausea states father has history of ulcerative colitis that started around this time Physical Exam Constitutional: WD/WN, vitals as above Respiratory: normal respiratory effort, lungs clear to auscultation Cardiovascular: RRR, no murmur, no edema Gastrointestinal (Abdomen): normal bowel sounds, soft, nontender, no hepatosplenomegaly (no worsening of discomfort elicited on palpation ) Results & Data Results & Data Vital Signs (Past 12 Hours) Vital Signs Temp Pulse Resp BP Pulse Ox O2 Del Method 02/21/25 07:35 36.3 C L 64 18 112/67 98 Room Air Laboratory Results Short CBC 02/21/25 Range/Units 05:58 WBC 5.59 (4.8-10.8) K/ul Hgb 14.1 (12.0-16.0) g/dl Hct 39.8 (37.0-47.0) % Plt Count 260 (130-400) K/uL BMP 02/21/25 05:58 Sodium 142 Potassium 4.1 Chloride 109 H Carbon Dioxide 28 BUN 10 Creatinine 0.81 Glucose 84 Calcium 9.0 Medications Administered Home Medications Medication Instructions Recorded Confirmed Last Taken paroxetine HCl 10 mg tablet 10 mg PO QAM 01/15/24 02/19/25 01/14/24 paroxetine HCl 40 mg tablet 40 mg PO QAM 01/15/24 02/19/25 01/14/24 ondansetron 4 mg disintegrating 4 mg PO Q6H PRN nausea and 01/27/25 02/19/25 Unknown tablet vomiting #20 tabs aripiprazole 10 mg tablet 10 mg PO QAM 01/29/25 02/19/25 Unknown gabapentin 600 mg tablet 600 mg PO TID 01/29/25 02/19/25 Unknown pantoprazole 40 mg tablet,delayed 40 mg PO [facility] 01/29/25 02/19/25 Unknown release trazodone 100 mg tablet 100 mg PO 01/29/25 02/19/25 Unknown cholecalciferol (vitamin D3) 50 50 mcg PO DAILY 02/16/25 02/19/25 Unknown mcg (2,000 unit) capsule (Vitamin D3) famotidine 20 mg tablet 20 mg PO HS 02/16/25 02/19/25 Unknown prazosin 2 mg capsule 2 mg PO HS 02/16/25 02/19/25 Unknown testosterone cypionate 200 mg/mL 25 mg IM UD 02/16/25 02/19/25 Unknown intramuscular oil cephalexin 500 mg capsule 500 mg PO Q6H 7 days #28 caps 02/17/25 02/19/25 Unknown ondansetron 4 mg disintegrating 4 mg PO Q8H PRN nausea and 02/17/25 02/19/25 Unknown tablet vomiting 5 days #15 tabs Active Medications Generic Name Dose Route Start Last Admin Trade Name Freq PRN Reason Stop Dose Admin Aripiprazole 10 mg 02/20/25 09:00 02/21/25 08:47 Aripiprazole 10 Mg Tab PO 03/22/25 08:59 10 mg QAM ALESSIO Administration Cephalexin HCl 500 mg 02/20/25 00:00 02/21/25 11:52 Cephalexin 500 Mg Cap PO 02/25/25 00:00 500 mg Q6 ALESSIO Administration Protocol Dicyclomine HCl 10 mg 02/20/25 10:30 02/21/25 13:15 Dicyclomine Hcl 10 Mg Cap PO 03/22/25 10:29 10 mg QID ALESSIO Administration Famotidine 20 mg 02/19/25 22:22 02/20/25 20:46 Famotidine 20 Mg Tab PO 03/21/25 22:21 20 mg HS ALESSIO Administration Gabapentin 600 mg 02/19/25 22:22 02/21/25 13:15 Gabapentin 600 Mg Tab PO 03/21/25 22:21 600 mg TID ALESSIO Administration Lactated Ringer's 1,000 mls @ 100 mls/hr 02/19/25 22:22 02/21/25 13:18 Lr IV 02/22/25 22:21 100 mls/hr .Q10H ALESSIO Administration Acetaminophen 1,000 mg in 100 mls @ 400 mls/hr 02/19/25 22:22 02/20/25 07:20 Ofirmev IV 02/22/25 22:21 Infused Q8H PRN Infusion Pain or Fever Ketorolac Tromethamine 15 mg 02/19/25 22:22 02/21/25 09:39 Ketorolac Tromethamine 15 Mg/Ml Vial IV 02/24/25 22:21 15 mg Q6H PRN Administration Mod-Sev Pain (Scale 4-10) Pantoprazole Sodium 40 mg 02/20/25 09:00 02/21/25 08:47 Pantoprazole 40 Mg Tab PO 03/22/25 08:59 40 mg QAM ALESSIO Administration Paroxetine HCl 10 mg 02/20/25 09:00 02/21/25 08:46 Paroxetine Hcl 10 Mg Tab PO 03/22/25 08:59 10 mg QAM ALESSIO Administration Paroxetine HCl 40 mg 02/20/25 09:00 02/21/25 08:46 Paroxetine Hcl 20 Mg Tab PO 03/22/25 08:59 40 mg QAM ALESSIO Administration Prazosin HCl 2 mg 02/19/25 22:22 02/20/25 23:23 Prazosin Hcl 1 Mg Cap PO 03/21/25 22:21 2 mg HS ALESSIO Administration Trazodone HCl 100 mg 02/19/25 22:22 02/20/25 23:23 Trazodone Hcl 100 Mg Tab PO 06/07/25 22:21 100 mg HS ALESSIO Administration Vitamin D 50 mcg 02/20/25 09:00 02/21/25 08:45 Cholecalciferol 25 Mcg (1000 Units) Tab PO 03/22/25 08:59 50 mcg DAILY ALESSIO Administration
[2025-02-21] MEDS: POLYETHYLENE (MIRALAX) 17 GM PACK PO SCH (15:18)
[2025-02-21] MEDS: DOCUSATE SODIUM/SENNA 50/8.6MG TAB PO SCH (15:18)
[2025-02-21 15:29] VITALS: O2SAT 97
[2025-02-22 06:30] LABS: Hematocrit (blood only) 40.2 % (37.0-47.0); Hemoglobin 14.4 g/dl (12.0-16.0); Mean Corpuscular Hgb Conc 35.8 g/dL (32.0-36.0); Mean Corpuscular Volume 89.3 fL (80.0-100.0); Mean Platelet Volume 9.7 fL (9.4-12.4); Platelet Count 268 K/uL (130-400); RDW Coefficient of Variation 11.5 % (11.5-14.5); RDW Standard Deviation 37.6 fL (36.4-46.3)
[2025-02-22 07:00] LABS: BUN Creatinine Ratio 14.6 (10-20); Calcium 9.5 mg/dl (8.6-10.3); Creatinine Clr Calc Pharmacy 112.1 ml/min; Magnesium 1.8 mg/dl (1.7-2.4); Phosphorus 4.4 mg/dl (2.5-4.9)
[2025-02-22 08:02] VITALS: BP 102/63; PULSE 63; RESP 18; TEMP 97.9
--- NOTE | 2025-02-22 10:38 | Gastrointestinal Consultation ---
Date of Consultation February 22, 2025 Assessment & Plan (1) Colitis: Questionable colitis on CT scan. This is based on wall thickening in the ascending and proximal transverse colon. Radiology notes this may be related to underdistention. Unfortunately patient did not receive oral contrast for this or his previous 3 CT scans. This makes visualization and reporting of wall thickening unreliable. Patient does not have a history of regular diarrhea, there has been no rectal bleeding. Concern for ulcerative colitis based on family history though I note no bleeding which is typical for ulcerative colitis and no wall thickening in the left colon which again would be more typical. At this point I do not believe he is colitis. I have recommended fecal calprotectin. If this is elevated then a colonoscopy would be warranted. This result may be delayed by his absence of bowel movements at this time, patient states he has not moved his bowels since admission he is getting laxatives at this time. Again, atypical for ulcerative colitis. Fecal calprotectin I believe is a reference test so it may take a while to come back. He can be discharged from a GI perspective with follow-up of the fecal calprotectin results as an outpatient. History of Present Illness Reason for Consultation: Abnormal CT scan, questionable colitis Attending Physician: Vivi Galan MD History of Present Illness 19-year-old female to male transition. Came in with pleuritic type chest pain. Has a history of fibromyalgia. Pain is aggravated by moving coughing or twisting it is located around the right upper quadrant right rib cage. Not associated with pleuritic rub. Imaging studies including gallbladder and CT scan negative for biliary source. Patient's Cornejo sign is negative. GI is consulted as there is some questionable thickening of the ascending colon transverse colon. Patient has a family history of ulcerative colitis in his father. Patient does not regularly have diarrhea. He has not moved his bowels for 3 to 4 days since being here. He denies any blood with bowel movements. Occasionally some mucus. There is no thickening of the left colon or rectum which would be more typical for ulcerative colitis. The CT scan was performed without oral contrast. Wall thickening is not reliable in this situation. Often just related to under distention. Patient has had a number of CT scans. Including [address] scans since September 2023 in addition to this he has had both head and chest CT scans. Not anxious to repeat a CT scan at this time based on above. I think a fecal calprotectin will give us adequate information whether there is a true colitis. The return of these results may be delayed by his absence of bowel movements and that it is a reference test. Once collected patient can be discharged from a GI perspective and fecal calprotectin can be followed up in the outpatient setting. If the fecal calprotectin is elevated then a colonoscopy would be warranted. If negative then I do not think this gentleman requires a colonoscopy. If further imaging is required could potentially undergo an MRI enterography. Though again at this point do not think it is indicated. Allergies Allergy/AdvReac Type Severity Reaction Status Date / Time amoxicillin Allergy Hives Verified 02/16/25 22:40 Home Medications Medication Instructions Recorded Confirmed Type paroxetine HCl 10 mg tablet 10 mg PO QAM 01/15/24 02/19/25 History paroxetine HCl 40 mg tablet 40 mg PO QAM 01/15/24 02/19/25 History ondansetron 4 mg disintegrating 4 mg PO Q6H PRN nausea and 01/27/25 02/19/25 Rx tablet vomiting #20 tabs aripiprazole 10 mg tablet 10 mg PO QAM 01/29/25 02/19/25 History gabapentin 600 mg tablet 600 mg PO TID 01/29/25 02/19/25 History pantoprazole 40 mg tablet,delayed 40 mg PO QAM 01/29/25 02/19/25 History release trazodone 100 mg tablet 100 mg PO HS 01/29/25 02/19/25 History cholecalciferol (vitamin D3) 50 50 mcg PO DAILY 02/16/25 02/19/25 History mcg (2,000 unit) capsule (Vitamin D3) famotidine 20 mg tablet 20 mg PO HS 02/16/25 02/19/25 History prazosin 2 mg capsule 2 mg PO HS 02/16/25 02/19/25 History testosterone cypionate 200 mg/mL 25 mg IM UD 02/16/25 02/19/25 History intramuscular oil cephalexin 500 mg capsule 500 mg PO Q6H 7 days #28 caps 02/17/25 02/19/25 Rx ondansetron 4 mg disintegrating 4 mg PO Q8H PRN nausea and 02/17/25 02/19/25 Rx tablet vomiting 5 days #15 tabs Patient History Medical History Acute pancreatitis Surgical History No significant past surgical history Social History Smoking Status: Never smoker Tobacco Type: E-cigarettes / Vaping Hx Alcohol Use: No Hx Substance Use: Yes Last Used Substance: Days (ago) Preferred Language: Citizen Of [place] Communication Ability: Effective [employer] Sales Representative Required: No Beliefs That Will Affect Care: None Current Living Situation: Family Current Living Situation Comment: Lives with boyfriend in an apartment. Other Information That Helps Us Care for You: No Feels Safe at Home: Yes Safety Concerns: Feels Safe At This Time Gender Identity: Transgender Male Assistive Devices: Cane and Walker Review of Systems Review of Systems: Denies colin fevers chills viral symptoms. No recent weight loss Review of systems as per admitting H&P reviewed without changes. GI as noted above. Physical Exam Physical Exam: Patient standing at the bedside. No acute distress. Does note right upper quadrant right rib cage pain with movements The eyes reveal no jaundice Chest was clear. No pleural friction rubs identified. Heart sounds were normal Abdomen is benign. Cornejo sign was negative. Pain was most fully reproducible by palpation over the anterior ribs. Indeed seem to have a trigger point in this area Abdomen otherwise benign. Exam otherwise negative Results & Data Vital Signs (Past 12 Hours) Vital Signs Temp Pulse Resp BP Pulse Ox O2 Del Method 02/22/25 08:01 36.6 C 63 18 102/63 97 Room Air PG Care Time/CCT Total # of Minutes Spent Total Time Spent with Patient: Total time spent is greater than 50% in coordination of care (as documented) at patient's floor/unit and/or counseling patient: Coding Level of Care Code 70964 INT INP/OBS CARE 1/40MIN Diagnoses Colitis K52.9
[2025-02-22] MEDS: bisacodyL 10 MG SUPP PR STA (12:05)
[2025-02-22] MEDS: POLYETHYLENE (MIRALAX) 17 GM PACK PO SCH (12:05)
[2025-02-22] MEDS: SOD PHOSPHATE/SOD BIPHOSPHATE ENEMA 132 ML BTL PR PRN (13:35)
--- NOTE | 2025-02-22 14:33 | Discharge Summary ---
Discharge Summary Date of Service February 22, 2025 Principal Dx & Hospital Course #1 = Principal Diagnosis (1) Abdominal pain: Mr Cabello is 19-year-old FTM, pronouns he/him, with past medical history significant for PTSD, depression, anxiety, GERD, history of pancreatitis, history of fibromyalgia comes with right-sided abdominal and chest pain. CT imaging reveals colitis/enterisis like changes. Patient was in the ER on 02/16/2025 with similar pain and found to UTI and discharged on Keflex. Patient reports continued discomfort noted with cough/deep breathing or any big movements. Patient reports family hx of UC and is concerned with report of colitis on CT, therefore GI consulted. GI feels the patient's presentation is atypical for UC, however, collected a fecal calprotectin. Patient with residual discomfort, but reports some relief with bentyl therefore prescription sent for prn for abdominal spasms. On day of discharge, patient eating well, functioning independently, and verbalizes understanding of plan to follow up with GI as OP to discuss scope and further evaluation. #Right upper quadrant pain #Possible gastroenteritis EKG and troponin negative D-dimer negative,LFTs okay with chronic t bili elevation, lipase wnl Chest x-ray okay. No leukocytosis. UA WNL Diet as tolerated bentyl prn for op follow up GI as an OP #Recent UTI continue keflex until 02/24 #Depression with anxiety, PTSD, fibromyalgia Continue home medications #GERD Continue Protonix and Pepcid Notes For Next Care Provider Medication Changes From Visit bentyl 10 mg qid prn abdominal spasms Admission HPI Per Admitting Provider 19-year-old female to male with past medical history significant for PTSD, depression, anxiety, GERD, history of pancreatitis, history of fibromyalgia comes with right-sided abdominal and chest pain. Pain is going on for some time pain. Patient was in the ER on 02/16/2025 with similar pain and found to UTI and discharged on Keflex. But the pain is not getting better. Any movement or taking deep breath the pain is worse. Denies any fevers. No shortness of breath. No cough. Has Some nausea. Had some visualizations earlier but that is all resolved. Currently resting comfortably and hemodynamically stable. Past medical history. As mentioned above. Past surgical history. EGD. EGD with endoscopic ultrasound. Partial removal/revision of hymen. Social history. Smoke cigarettes. Alcohol couple of times a month. Smokes marijuana. Family history. Mother had mental disorder. Anxiety. Hypothyroidism. Father had ulcerative colitis. Paternal grandfather had diabetes. Maternal grandfather had hypertension. Discharge Exam Constitutional WD/WN, vitals as above Respiratory normal respiratory effort, lungs clear to auscultation Cardiovascular RRR, no murmur, no edema Updated Medication List Medication Instructions Recorded Confirmed Type paroxetine HCl 10 mg tablet 10 mg PO QAM 01/15/24 02/19/25 History paroxetine HCl 40 mg tablet 40 mg PO QAM 01/15/24 02/19/25 History ondansetron 4 mg disintegrating 4 mg PO Q6H PRN nausea and 01/27/25 02/19/25 Rx tablet vomiting #20 tabs aripiprazole 10 mg tablet 10 mg PO QAM 01/29/25 02/19/25 History gabapentin 600 mg tablet 600 mg PO TID 01/29/25 02/19/25 History pantoprazole 40 mg tablet,delayed 40 mg PO QAM 01/29/25 02/19/25 History release trazodone 100 mg tablet 100 mg PO HS 01/29/25 02/19/25 History cholecalciferol (vitamin D3) 50 50 mcg PO DAILY 02/16/25 02/19/25 History mcg (2,000 unit) capsule (Vitamin D3) famotidine 20 mg tablet 20 mg PO HS 02/16/25 02/19/25 History prazosin 2 mg capsule 2 mg PO HS 02/16/25 02/19/25 History testosterone cypionate 200 mg/mL 25 mg IM UD 02/16/25 02/19/25 History intramuscular oil cephalexin 500 mg capsule 500 mg PO Q6H 7 days #28 caps 02/17/25 02/19/25 Rx ondansetron 4 mg disintegrating 4 mg PO Q8H PRN nausea and 02/17/25 02/19/25 Rx tablet vomiting 5 days #15 tabs dicyclomine 10 mg capsule 10 mg PO QID PRN abdominal spasm 02/22/25 Rx 30 days #120 caps Hospital Stay Data Consultations 02/19/25 19:33 Consult Hospitalist Stat 02/21/25 13:23 Consult Gastroenterology Routine Diagnostic Imagining Performed 02/20/25 11:18 US abdomen [US liver] Routine Pending Results Patient Have Any Pending Studies at Discharge: No Discharge Instructions Given to Patient (Per Discharging Provider) You were admitted for stomach/right sided pain. Your labs did not reveal any signs of acute infection of your urine or inflammation of your liver/pancreas. Your imaging did show some signs of possible gastroenteritis, or common stomach infection. Continue the antibiotics prescribed for UTI until 02/24, Sunday. A follow up with Gastroenterology will be coordinated. Total Time Total Time Spent Total Time Spent (In Minutes): 45
[2025-02-22 15:49] LABS: Adenovirus F 40/41 PCR Not Detected (NotDetected); Astrovirus PCR Not Detected (NotDetected); Campylobacter PCR Not Detected (NotDetected); Cryptosporidium PCR Not Detected (NotDetected); Cyclospora cayetanensis PCR Not Detected (NotDetected); Entamoeba histolytica PCR Not Detected (NotDetected); Enteroaggregative E.coli(EAEC) Not Detected (NotDetected); Enteropathogenic E.coli (EPEC) Not Detected (NotDetected); Enterotoxigenic E.coli (ETEC) Not Detected (NotDetected); Giardia lamblia PCR Not Detected (NotDetected); Norovirus GI/GII PCR Not Detected (NotDetected); Plesiomonas shigelloides PCR Not Detected (NotDetected); Rotavirus A PCR Not Detected (NotDetected); Salmonella PCR Not Detected (NotDetected); Sapovirus PCR Not Detected (NotDetected); Shiga-like Toxin E.coli (STEC) Not Detected (NotDetected); Shigella/Enteroinvasive E.coli Not Detected (NotDetected); Vibrio cholerae PCR Not Detected (NotDetected); Vibrio species PCR Not Detected (NotDetected); Yersinia enterocolitica PCR Not Detected (NotDetected)
== END 2025-02-22 17:06 | disposition home or self-care (01) ==
LOC: ED 10:44 → 3W 10:44